=== PATIENT | male | born 1985 | race Caucasian/White ===

== ENCOUNTER 2017-04-29 17:19 | Emergency (ER) | payer MEDICAID ==
[2017-04-29] MEDS ORDERED: Sodium Chloride 0.9% 10 ML Syringe FLUSH PRN (17:22)
--- NOTE | 2017-04-29 17:22 | EDM.PDOC ---
ED HPI GENERAL MEDICAL PROBLEM - General Chief Complaint: Neurological Problem Stated Complaint: dizziness, lightheaded Time Seen by Provider: 04/29/17 17:20 Source of Information: Reports: Patient, EMS, Family (Mother), Old Records ([facility] EMR. No paper hospital chart available.). 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 He also complains of some photophobia and an 8/10 bilateral frontal headache with no previous history of migraine headaches, visual changes, seizure activity, change in mental status, or other neurological deficits. The polisher sand did start O2 at 2 L/m by nasal cannula with O2 sat of 96% on room air upon their initial evaluation. Patient has a known history of recurrent nonspecific near syncopal episodes, including emergency room evaluations in this facility on 07/17/16, 08/30/16, and 11/07/16. The patient's mother did bring him to [facility] on 11/07/16 with apparent negative cardiac evaluation in that facility, although specific testing unknown. The patient did have a suboptimal Cardiolite stress test on 07/19/16 secondary to artifacts with 5 episodes of near syncope shortly after that procedure. The patient denies any chest pain/pressure, heart flutter, orthopnea, diaphoresis, recent decreased exercise tolerance, or any other anginal-type symptoms. No recent history of abdominal pain, heartburn, nausea, diarrhea, melena, gross hematochezia, or any food intolerance, including fatty foods, etc.. The patient also denies any recent fever, cough, wheezing, dyspnea, etc.. The patient admits to continued marijuana use with marijuana use yesterday evening from a new supplier. He denies any other illicit drug use Onset: Today, Sudden, Gradual Onset Date: 04/29/17 Onset Time: 16:45 Duration: Constant Location: Reports: Head. Denies: Face, Neck, Chest, Abdomen, Back, Upper Extremity, Left, Upper Extremity, Right, Radiates to Quality: Reports: Same as Previous Episode Severity: Moderate Improves with: Reports: None Worsens with: Reports: None Context: Reports: Other (As above) Associated Symptoms: Reports: Headaches, Syncope (Near syncope). 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 Denies: Aspirin, IV/IO Bilateral Frontal Headache Pain Score (Numeric/FACES): 8 - Related Data Allergies Allergy/AdvReac Type Severity Reaction Status Date / Time No Known Allergies Allergy Verified 04/29/17 17:22 Home Meds: Home Meds Levothyroxine 125 mcg PO ACBREAKFAST 11/07/16 [History] Past Medical History HEENT History: Reports: Other (See Below). Denies: Allergic Rhinitis, Glaucoma , Hard of Hearing, Impaired Vision, Macular Degeneration Other HEENT History: Right-sided strabismus convergence Cardiovascular History: Reports: Arrhythmia, High Cholesterol, Syncope, Other ( See Below). Denies: Afib, Aneurysm, Blood Clots/VTE/DVT, CAD, Heart Failure, Heart Murmur, Hypertension, UT Other Cardiovascular History: Syncopal episode initially on 07/12/15 with recurrent episodes since that time, hyperlipidemia and triglyceridemia, right bundle branch block Respiratory History: Reports: COPD, Intubation, Previous, Other (See Below). Denies: Asthma, Bronchitis, Recurrent, Intubation, Difficult, PE, Pneumothorax, Sleep Apnea Other Respiratory History: Patient with history of premature delivery at 32 weeks gestation with and NICU care and intubation, COPD by chest x-ray with history of tobacco and marijuana use Gastrointestinal History: Reports: Chronic Constipation, GERD, Hemorrhoids, Jaundice, Other (See Below). Denies: Bowel Obstruction, Celiac Disease, Cholelithiasis, Chronic Diarrhea, Gastritis, GI Bleed, Hepatitis, Hiatal Hernia , Inflammatory Bowel Disease, Irritable Bowel Syndrome, Pancreatitis, PUD Other Gastrointestinal History: jaundice secondary to prematurity Genitourinary History: Reports: None, Other (See Below). Denies: Acute Renal Failure, BPH, Chronic Renal Insuffiency, Renal Calculus, STD, Urinary Incontinence, UTI, Recurrent Other Genitourinary History: Although nonspecific history of previous episode of mild renal insufficiency by medical records Musculoskeletal History: Reports: Arthritis, Back Pain, Chronic, Fracture, Osteoarthritis, Other (See Below). Denies: Amputation, Gout, Neck Pain, Chronic , RA, SLE Other Musculoskeletal History: Boxer's fracture of the fifth metacarpal of the left hand initially at age 15 and then at age 17 Neurological History: Reports: Concussion, Head Trauma, Other (See Below). Denies: Brain Injury, Cerebral Aneurysms, CVA, Headaches, Chronic, Migraines, Seizure, TIA Other Neuro History: Head concussion at about age 12 Psychiatric History: Reports: Addiction, Anxiety, Depression, Suicidal Ideation , Other (See Below). Denies: Abuse, Victim of, ADD, ADHD, Psych Hospitalization (s), PTSD, Suicide Attempt Other Psychiatric History: Anxiety and depression with suicidal ideation without attempt at about age 13, chronic illicit drug and tobacco use Endocrine/Metabolic History: Reports: Hypothyroidism, Other (See Below). Denies : Diabetes, Type I, Diabetes, Type II, IDDM Other Endocrine/Metabolic History: Hypothyroidism since with history of previous medication noncompliance, thymus hyperplasia of unknown etiology Hematologic History: Reports: None. Denies: Anemia, Blood Transfusion(s) Immunologic History: Reports: None. Denies: AIDS, HIV, SLE Oncologic (Cancer) History: Reports: None. Denies: Basal Cell Carcinoma, Hodgkin's Lymphoma, Leukemia, Lymphoma, Malignant Melanoma, Non-Hodgkin's Lymphoma, Squamous Cell Carcinoma Dermatologic History: Reports: Eczema, Other (See Below). Denies: Psoriasis Other Dermatologic History: Eczema on the hands with no current therapy - Infectious Disease History Infectious Disease History: Reports: Chicken Pox, Measles. Denies: C-Difficile , Meningitis, Mononucleosis, MRSA, Mumps, Rubella, Scarlet Fever, Shingles, TB, VRE - Past Surgical History Head Surgeries/Procedures: Reports: None HEENT Surgical History: Reports: None. Denies: Adenoidectomy, Eye Surgery, Myringotomy w Tube(s), Naso-Sinus Surgery, Oral Surgery, Tonsillectomy Cardiovascular Surgical History: Reports: None. Denies: Varicose, Vascular Surgery Respiratory Surgical History: Reports: None GI Surgical History: Reports: None. Denies: Appendectomy, Cholecystectomy, Colonoscopy, EGD, Hernia, Abdominal, Hernia, Inguinal, Hernia Repair/Other Male Surgical History: Reports: Circumcision, Other (See Below) Other Male Surgeries/Procedures: Circumcision as an infant Endocrine Surgical History: Reports: None. Denies: Thyroid Biopsy Neurological Surgical History: Reports: None. Denies: C-Spine, Discectomy, Laminectomy, Lumbar Spine, Spinal Fusion, Vertebroplasty Musculoskeletal Surgical History: Reports: None. Denies: Arthroscopic Knee, Arthroscopic Procedure, Carpal Tunnel, Ganglion Cyst, Joint Replacement, ORIF, Shoulder Surgery Oncologic Surgical History: Reports: None Dermatological Surgical History: Reports: Other (See Below) Other Dermatological Surgeries/Procedures: Skin excision 2 sebaceous cysts from the left buttocks in January 2016 - Past Imaging History Past Imaging History: Reports: CAT Scan (CT of the chest, abdomen, and pelvis all with IV contrast on 11/07/16, CT of the head at age 12 at time of head concussion), MRI (Apparent MRI of the chest in October 2016 in [facility]), Stress Testing (Inconclusive Cardiolite stress test on 07/19/16 secondary to artifacts in the Cardiolite scan) Social & Family History - Family History HEENT: Reports: None. Denies: Allergic Rhinitis, Glaucoma, Macular Degeneration , Retinal Detachment Cardiac: Reports: CAD, Heart Failure, High Cholesterol, UT, Stent, Other (See Below). Denies: Afib, Aneurysm, Arrhythmia, Blood Clots/VTE/DVT, Bypass, Heart Murmur, Hypertension, Pacemaker, PVD/COD, Syncope Other Cardiac Family History: Maternal uncle with fatal UT at age 54, father with UT at age 46, maternal aunt with UT in PTCA/stent times 2 at age 54, mother with UT at age 54, mother with hyperlipidemia Respiratory: Reports: None. Denies: Asthma, COPD, PE, Pneumothorax, Sleep Apnea GI: Reports: Cholelithiasis, Other (See Below). Denies: Celiac Disease, Colon Polyps, GERD, GI bleed, Hepatitis, Inflammatory Bowel Disease, Irritable Bowel Syndrome, Pancreatitis, PUD Other GI Family History: Brother with appendectomy at age 31, sister with cholecystectomy at age 18 : Reports: None. Denies: Renal Calculus, Renal Disease/Insufficiency OBGYN: Reports: None. Denies: Endometriosis, Recurrent Spontaneous Musculoskeletal: Reports: Arthritis, Osteoarthritis, RA, Other (See Below). Denies: Gout, SLE Other Musculoskeletal Family History: Maternal grandmother with rheumatoid arthritis Neurological: Reports: CVA, Other (See Below). Denies: Alzheimers Disease, Cerebral Aneurysms, Dementia, Migraines, MS, Parkinson's, Seizure, TIA Other Neurological Family History: Brother with history of CVA x2 in his early 30s, mother with CVA at age 55 Psychiatric: Reports: Anxiety, Depression, Suicide Attempt, Other (See Below). Denies: Abuse, Victim of, ADD, ADHD, PTSD Other Psychiatric Family History: Father with anxiety depression disorder secondary to marital problems with successful suicide at age 46 Endocrine/Metabolic: Reports: None. Denies: Diabetes, Type I, Diabetes, type II , Hypothyroidism, IDDM Hematologic: Reports: None. Denies: Anemia, B12 Deficiency, SLE, Transfusion Reaction Immunologic: Reports: None. Denies: AIDS, HIV, SLE Dermatologic: Reports: None. Denies: Eczema, Psoriasis Oncologic: Reports: Other (See Below). Denies: Colon, Hodgkin's Lymphoma, Leukemia, Lymphoma, Prostate, Skin Other Oncologic Family History: Mother with breast cancer in her 50s - Tobacco Use Smoking Status *Q: Current Some Day Smoker Tobacco Use Within Last Twelve Months: Cigarettes Years of Tobacco use: 15 Packs/Tins Daily: 0.2 Used Tobacco, but Quit: No Month Tobacco Last Used: Patient smokes about one pack every 2 weeks currently and is trying to quit Smoking Cessation Information Provided To Patient: Yes Second Hand Smoke Exposure: Yes Source of Second Hand Smoke Exposure: Mother smokes Second Hand Smoke Education Provided: Yes - Caffeine Use Caffeine Use: Reports: Coffee (Occasional). Denies: Energy Drinks, Soda, Tea Caffeine Use Comment: 2 cups of coffee per year - Alcohol Use Alcohol Use History: Yes Days Per Week of Alcohol Use: 1 (No previous DWIs, problems with alcohol abuse, etc.) Number of Drinks Per Day: 2 (Usually beer) Total Drinks Per Week: 2 Alcohol Use in Last Twelve Months: Yes Alcohol Use Frequency: Socially - Recreational Drug Use Recreational Drug Use: Yes Drug Use in Last 12 Months: Yes Recreational Drug Type: Reports: Marijuana/Hashish. 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 ED EXAM, GENERAL - Physical Exam Exam: See Below Exam Limited By: No Limitations General Appearance: Alert, WD/WN, No Apparent Distress, Anxious (Mild to moderate) Eye Exam: Bilateral Eye: EOMI, Normal Fundi, Normal Inspection (No nystagmus), PERRL Ears: Normal External Exam, Normal Canal, Hearing Grossly Normal, Normal TMs Nose: Normal Inspection, Normal Mucosa, No Blood Throat/Mouth: Normal Inspection, Normal Lips, Normal Teeth, Normal Gums, Normal Oropharynx, Normal Voice, No Airway Compromise. No: Dysphagia, Perioral Cyanosis Head: Atraumatic, Normocephalic. No: Facial Swelling, Facial Tenderness, Sinus Tenderness Neck: Normal Inspection, Supple, Non-Tender, Full Range of Motion. No: Carotid Bruit, Lymphadenopathy (L), Lymphadenopathy (R), Thyromegaly Respiratory/Chest: No Respiratory Distress, Lungs Clear, Normal Breath Sounds, No Accessory Muscle Use, Chest Non-Tender. No: Pleural Rub, Retractions Cardiovascular: Normal Peripheral Pulses, Regular Rate, Rhythm, No Edema, No Gallop, No JVD, No Murmur, No Rub. No: Gallop/S3, Gallop/S4, Friction Rub Peripheral Pulses: 4+: Radial (L), Radial (R), Dorsalis Pedis (L), Dorsalis Pedis (R) GI/Abdominal: Normal Bowel Sounds, Soft, Non-Tender, No Organomegaly, No Distention, No Abnormal Bruit, No Mass. No: Guarding (Male) Exam: Deferred Rectal (Males) Exam: Deferred Back Exam: Normal Inspection, Full Range of Motion. No: CVA Tenderness (L), CVA Tenderness (R), Muscle Spasm Extremities: Normal Inspection, Normal Range of Motion, Non-Tender, Normal Capillary Refill, No Pedal Edema Neurological: Alert, Oriented, CN II-XII Intact, Normal Cognition, Normal Gait, Normal Reflexes (Negative Babinski's, finger to nose, and pronator rotation tests. No evidence of facial paresis, tongue deviation, orthostasis, etc.. Excellent reverse thought processes.), No Motor/Sensory Deficits Psychiatric: Anxious (Mild to moderate), Depressed Mood (Adequate eye contact), Flat Affect Skin Exam: Warm, Dry, Intact, Normal Color, No Rash. No: Diaphoretic, Ecchymosis, Jaundice, Wound/Incision Lymphatic: No Adenopathy EKG INTERPRETATION EKG Date: 04/29/17 Time: 17:35 Rhythm: Other (Mild sinus bradycardia) Rate (Beats/Min): 57 Floyd: Normal (Neutral cardiac axis) P-Wave: Present (Diffuse biphasic P waves with poor R-wave progression in the anterior leads and possible left ventricular hypertrophy by voltage) QRS: RBBB (QRS interval of 0.10 seconds representing an incomplete right bundle branch block with T-wave inversion in lead V1) ST-T: Normal QT: Normal TX/PQ Interval: 0.14 seconds with no delta waves noted Comparison: Change From Previous EKG (Right Bundle branch block versus lead placement and T-wave inversion in lead V1 with resolution of previous T-wave inversion in lead 3 and pulmonary hypertension by EKG on 11/07/16) EKG Interpretation Comments: 1. Sinus bradycardia 2. Incomplete right bundle branch block 3. No acute ischemic changes Course - Vital Signs Last Recorded V/S: Last Vital Signs Temp 36.8 C 04/29/17 17:23 Pulse 56 L 04/29/17 19:20 Resp 18 04/29/17 19:20 BP 104/72 04/29/17 19:20 Pulse Ox 98 04/29/17 19:20 Vital Signs - 24 hr 04/29/17 04/29/17 04/29/17 17:23 17:24 17:41 Temperature [ 36.8 C Temporal] Pulse, 62 57 L Peripheral [ Right Pulse Oximetry] Respiratory 14 17 Rate Blood Pressure 137/89 115/70 [Left Upper Arm ] O2 Sat by Pulse 100 100 Oximetry O2 Sat by Pulse 100 Oximetry [ Nasal Cannula] 04/29/17 04/29/17 04/29/17 18:03 18:17 18:32 Temperature [ Temporal] Pulse, 58 L 57 L 56 L Peripheral [ Right Pulse Oximetry] Respiratory 17 17 Rate Blood Pressure 111/78 105/71 104/68 [Left Upper Arm ] O2 Sat by Pulse 100 100 Oximetry O2 Sat by Pulse Oximetry [ Nasal Cannula] 04/29/17 04/29/17 04/29/17 18:47 19:04 19:20 Temperature [ Temporal] Pulse, 57 L 59 L 56 L Peripheral [ Right Pulse Oximetry] Respiratory 18 15 18 Rate Blood Pressure 107/79 113/74 104/72 [Left Upper Arm ] O2 Sat by Pulse 100 100 98 Oximetry O2 Sat by Pulse Oximetry [ Nasal Cannula] - Orders/Labs/Meds Orders: Active Orders 24 hr Category Date Time Status Blood Glucose Check, Bedside [RC] STAT Care 04/29/17 17:20 Active Cardiac Monitoring [RC] . DIRECTED Care 04/29/17 17:23 Active EKG Documentation Completion [RC] ASDIRECTED Care 04/29/17 17:26 Active Oxygen Therapy, ED [RC] CONTINUOUS Care 04/29/17 17:24 Active Peripheral IV Care [RC] . DIRECTED Care 04/29/17 17:26 Active Pulse Oximetry [RC] CONTINUOUS Care 04/29/17 17:25 Active Up With Assistance [RC] PFP Care 04/29/17 17:25 Active Chest 1V Frontal [CR] Stat Exams 04/29/17 17:44 Taken Obtain Past Medical Record [OM.PC] Routine Oth 04/29/17 17:24 Active Peripheral IV Insertion Adult [OM.PC] Stat Oth 04/29/17 17:25 Ordered Resuscitation Status Routine Resus Stat 04/29/17 17:22 Ordered Labs: Laboratory Tests 04/29/17 04/29/17 04/29/17 Range/Units 17:38 17:38 17:38 WBC 8.8 (4.0-10.2) K/uL RBC 5.26 (4.33-5.41) M/uL Hgb 16.6 (13.1-16.8) g/dL Hct 48.1 (39.0-49.0) % MCV 91.4 (84.0-98.0) fL MCH 31.6 (28.2-33.3) pg MCHC 34.5 (31.7-36.0) g/dL RDW 13.2 (11.2-14.1) % Plt Count 249 (150-350) K/uL Neut % (Auto) 53.8 (45.0-80.0) % Lymph % (Auto) 34.0 (10.0-50.0) % Zapata % (Auto) 10.0 (2.0-14.0) % Eos % (Auto) 1.7 (0.0-5.0) % Baso % (Auto) 0.5 (0.0-2.0) % Neut # (Auto) 4.76 (1.40-7.00) K/uL Lymph # (Auto) 3.00 (0.50-3.50) K/uL Zapata # (Auto) 0.88 (0.00-1.00) K/uL Eos # (Auto) 0.15 (0.00-0.50) K/uL Baso # (Auto) 0.04 (0.00-0.20) K/uL PT (9.8-11.7) SEC INR APTT (23.5-30.0) SEC D-Dimer, Quantitative (0-400) ng/mL Sodium 140 (136-145) mmol/L Potassium 3.5 (3.5-5.1) mmol/L Chloride 106 (98-107) mmol/L Carbon Dioxide 20.6 L (21.0-32.0) mmol/L BUN 13 (7-18) mg/dL Creatinine 1.09 (0.51-1.17) mg/dL Est Cr Clr Drug Dosing 89.28 mL/min Estimated GFR (MDRD) > 60 mL/min Glucose 95 (74-106) mg/dL Hemoglobin A1c 5.6 (4.3-5.7) % Lactic Acid (0.4-2.0) mmol/L Uric Acid 5.5 (2.6-7.2) mg/dL Calcium 9.1 (8.5-10.1) mg/dL Magnesium 2.1 (1.8-2.4) mg/dL Total Bilirubin 1.7 H (0.2-1.0) mg/dL Direct Bilirubin (0.0-0.2) mg/dL Indirect Bilirubin mg/dL AST 19 (15-37) U/L ALT 28 (12-78) U/L Alkaline Phosphatase 108 (46-116) IU/L Creatine Kinase 110 (26-308) U/L Creatine Kinase Index 1.5 (0.0-2.5) % CK-MB (CK-2) 1.60 (0.00-3.60) ng/mL Troponin I 0.004 (0.000-0.056) ng/mL Joc-F-[id number] Pept 10 (0-125) pg/mL Total Protein 6.7 (6.4-8.2) g/dL Albumin 3.7 (3.4-5.0) g/dL Amylase 34 (25-115) U/L TSH, Ultra Sensitive 1.597 (0.358-3.740) mIU/mL 04/29/17 04/29/17 04/29/17 Range/Units 17:38 17:38 17:38 WBC (4.0-10.2) K/uL RBC (4.33-5.41) M/uL Hgb (13.1-16.8) g/dL Hct (39.0-49.0) % MCV (84.0-98.0) fL MCH (28.2-33.3) pg MCHC (31.7-36.0) g/dL RDW (11.2-14.1) % Plt Count (150-350) K/uL Neut % (Auto) (45.0-80.0) % Lymph % (Auto) (10.0-50.0) % Zapata % (Auto) (2.0-14.0) % Eos % (Auto) (0.0-5.0) % Baso % (Auto) (0.0-2.0) % Neut # (Auto) (1.40-7.00) K/uL Lymph # (Auto) (0.50-3.50) K/uL Zapata # (Auto) (0.00-1.00) K/uL Eos # (Auto) (0.00-0.50) K/uL Baso # (Auto) (0.00-0.20) K/uL PT 11.6 (9.8-11.7) SEC INR 1.1 APTT (23.5-30.0) SEC D-Dimer, Quantitative < 100 (0-400) ng/mL Sodium (136-145) mmol/L Potassium (3.5-5.1) mmol/L Chloride (98-107) mmol/L Carbon Dioxide (21.0-32.0) mmol/L BUN (7-18) mg/dL Creatinine (0.51-1.17) mg/dL Est Cr Clr Drug Dosing mL/min Estimated GFR (MDRD) mL/min Glucose (74-106) mg/dL Hemoglobin A1c (4.3-5.7) % Lactic Acid 1.1 (0.4-2.0) mmol/L Uric Acid (2.6-7.2) mg/dL Calcium (8.5-10.1) mg/dL Magnesium (1.8-2.4) mg/dL Total Bilirubin (0.2-1.0) mg/dL Direct Bilirubin (0.0-0.2) mg/dL Indirect Bilirubin mg/dL AST (15-37) U/L ALT (12-78) U/L Alkaline Phosphatase (46-116) IU/L Creatine Kinase (26-308) U/L Creatine Kinase Index (0.0-2.5) % CK-MB (CK-2) (0.00-3.60) ng/mL Troponin I (0.000-0.056) ng/mL Oef-P-Uvlzvrrpyzy Pept (0-125) pg/mL Total Protein (6.4-8.2) g/dL Albumin (3.4-5.0) g/dL Amylase (25-115) U/L TSH, Ultra Sensitive (0.358-3.740) mIU/mL 04/29/17 04/29/17 Range/Units 17:38 17:38 WBC (4.0-10.2) K/uL RBC (4.33-5.41) M/uL Hgb (13.1-16.8) g/dL Hct (39.0-49.0) % MCV (84.0-98.0) fL MCH (28.2-33.3) pg MCHC (31.7-36.0) g/dL RDW (11.2-14.1) % Plt Count (150-350) K/uL Neut % (Auto) (45.0-80.0) % Lymph % (Auto) (10.0-50.0) % Zapata % (Auto) (2.0-14.0) % Eos % (Auto) (0.0-5.0) % Baso % (Auto) (0.0-2.0) % Neut # (Auto) (1.40-7.00) K/uL Lymph # (Auto) (0.50-3.50) K/uL Zapata # (Auto) (0.00-1.00) K/uL Eos # (Auto) (0.00-0.50) K/uL Baso # (Auto) (0.00-0.20) K/uL PT (9.8-11.7) SEC INR APTT 27.3 (23.5-30.0) SEC D-Dimer, Quantitative (0-400) ng/mL Sodium (136-145) mmol/L Potassium (3.5-5.1) mmol/L Chloride (98-107) mmol/L Carbon Dioxide (21.0-32.0) mmol/L BUN (7-18) mg/dL Creatinine (0.51-1.17) mg/dL Est Cr Clr Drug Dosing mL/min Estimated GFR (MDRD) mL/min Glucose (74-106) mg/dL Hemoglobin A1c (4.3-5.7) % Lactic Acid (0.4-2.0) mmol/L Uric Acid (2.6-7.2) mg/dL Calcium (8.5-10.1) mg/dL Magnesium (1.8-2.4) mg/dL Total Bilirubin 1.7 H (0.2-1.0) mg/dL Direct Bilirubin 0.2 (0.0-0.2) mg/dL Indirect Bilirubin 1.5 mg/dL AST (15-37) U/L ALT (12-78) U/L Alkaline Phosphatase (46-116) IU/L Creatine Kinase (26-308) U/L Creatine Kinase Index (0.0-2.5) % CK-MB (CK-2) (0.00-3.60) ng/mL Troponin I (0.000-0.056) ng/mL Krb-M-Geryzadndjg Pept (0-125) pg/mL Total Protein (6.4-8.2) g/dL Albumin (3.4-5.0) g/dL Amylase (25-115) U/L TSH, Ultra Sensitive (0.358-3.740) mIU/mL Stat Accu-Chek of 84 mg percent on arrival Meds: Medications Discontinued Medications Generic Name Dose Route Start Last Admin Trade Name Estefany PRN Reason Stop Dose Admin Sodium Chloride 10 ml 04/29/17 17:22 Saline Flush FLUSH ASDIRECTED PRN Keep Vein Open - Radiology Interpretation Free Text/Narrative:: Heart monitor showed occasional sinus bradycardia with lowest heart rate of 49 with average heart rate in the mid 50s and occasionally in the low 60s with no ectopy or arrhythmia Chest x-ray, portable, shows possible pulmonary obstructive disease with no cardiomegaly, CHF, pulmonary infiltrates, pneumothorax, etc. Departure - Departure Time of Disposition: 19:40 Disposition: Home, Self-Care 01 Condition: Good Clinical Impression: Tobacco abuse counseling, Peptic reflux disease, Mixed anxiety depressive disorder, Thymus hyperplasia, Near syncope, Illicit drug use, continuous, Right bundle branch block, [place] syndrome, Bradycardia Hypothyroidism Qualifiers: Hypothyroidism type: acquired Qualified Code(s): E03.9 - Hypothyroidism, unspecified Hyperlipidemia Qualifiers: Hyperlipidemia type: mixed hyperlipidemia Qualified Code(s): E78.2 - Mixed hyperlipidemia - Discharge Information Instructions: Near-Syncope, [id number] Referrals: Nicol Vieyra PA-C [Primary Care Provider] - Forms: ED Department Discharge, ED Return to Work/School Form Additional Instructions: 1. Follow-up with your regular provider, Nicol Deng PA-C, at [facility] in [place], in 2 days as recommended for reevaluation and possible scheduling of an event monitor, tilt table testing, cardiology/ neurology consultation, etc. depending on her symptoms and clinical course. 2. Work excuse- See Form 3. Limited activity as discussed with strict no driving, fall/injury precautions, etc. until otherwise directed by your regular provider 4. Stop all tobacco and all illicit drug use SAHARA as directed/per provided information and consider contacting [employer]uit [facility], etc.. 5. Ice packs to head and neck, dark and quiet room, etc. as directed until headache resolves. 6. Tylenol 650 mg by mouth every 4 hours and/or OTC ibuprofen 2-3 tabs by mouth every 6 hours with food as directed./needed. 7. Facility will call you tomorrow morning for scheduling of recommended echocardiogram in this facility tomorrow. Do not leave this facility until you receive the preliminary verbal report from me 8. At the Follow up visit as above discuss possible repeat Cardiolite stress test as previously recommended depending upon the above test results 9. Close follow-up of your thymus gland enlargement with your regular provider as discussed with possibility of referral to endocrinology - Problem List & Annotations (1) Bradycardia SNOMED Code(s): 57038888 Code(s): R00.1 - BRADYCARDIA, UNSPECIFIED Status: Acute Priority: High Onset Date: 04/29/17 Annotation/Comment:: Nonspecific mild to moderate of unknown etiology today with no true chest pain or anginal type symptoms. Patient does have a history of recurrent near syncopal episodes of unknown etiology with previous negative cardiology workup as above. Close follow-up by his regular provider as per discharge instructions, including recommended possible event monitor, repeat Cardiolite stress test, cardiology/neurology referral, etc. (2) Near syncope SNOMED Code(s): 881451739 Code(s): R55 - SYNCOPE AND COLLAPSE Status: Acute Priority: High Onset Date: 07/12/16 Annotation/Comment:: Recurrent nonspecific syncope as above. Note bradycardia as above. No neurological deficits at this time. Possible psychogenic versus cardiac component. 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 Consider repeat lipid panel now that his TSH is normal. Significant hyperlipidemia in the past with initiation of statin therapy depending on his clinical course and test results Qualifiers: Hyperlipidemia type: mixed hyperlipidemia Qualified Code(s): E78.2 - Mixed hyperlipidemia (6) Hypothyroidism SNOMED Code(s): 34774015 Code(s): E03.9 - HYPOTHYROIDISM, UNSPECIFIED Status: Chronic Priority: High Onset Date: Unknown Annotation/Comment:: TSH normal at this time. Medication compliance encouraged. Hypothyroidism since possibly secondary to premature delivery. Patient has been noncompliant with medical therapy in the past. Qualifiers: Hypothyroidism type: acquired Qualified Code(s): E03.9 - Hypothyroidism, unspecified (7) Illicit drug use, continuous SNOMED Code(s): 564091641 Code(s): F19.90 - OTHER PSYCHOACTIVE SUBSTANCE USE, UNSPECIFIED, UNCOMPLICATED Status: Chronic Priority: High Annotation/Comment:: Discontinuation of illicit drug use once again strongly recommended secondary to borderline COPD changes as above, exacerbation of depression, etc. (8) Mixed anxiety depressive disorder SNOMED Code(s): 961454392 Code(s): F41.8 - OTHER SPECIFIED ANXIETY DISORDERS Status: Chronic Priority: Medium Annotation/Comment:: Observe closely for now. Discontinue marijuana as above. (9) Peptic reflux disease SNOMED Code(s): 47368226 Code(s): K21.9 - GASTRO-ESOPHAGEAL REFLUX DISEASE WITHOUT ESOPHAGITIS Status: Chronic Priority: Medium Onset Date: ~07/17/16 Annotation/Comment: : Stable by history (10) Right bundle branch block SNOMED Code(s): 76320921 Code(s): I45.10 - UNSPECIFIED RIGHT BUNDLE-BRANCH BLOCK Status: Chronic Priority: Medium Annotation/Comment:: No true chest pain or anginal type symptoms with negative cardiac enzymes, however inconclusive recent Cardiolite stress test as above (11) Tobacco abuse counseling SNOMED Code(s): 480233839, 540201062, 041578149 Code(s): Z71.6 - TOBACCO ABUSE COUNSELING Status: Chronic Priority: Medium Annotation/Comment:: Tobacco cessation strongly encouraged both for the patient and his mother with tobacco cessation information provided to the mother today - Problem List Review Problem List Initiated/Reviewed/Updated: Yes - My Orders Last 24 Hours: My Active Orders 04/29/17 17:20 Blood Glucose Check, Bedside [] STAT 04/29/17 17:22 Resuscitation Status Routine 04/29/17 17:23 Cardiac Monitoring [RC] . DIRECTED 04/29/17 17:24 Oxygen Therapy, ED [RC] CONTINUOUS Obtain Past Medical Record [OM.PC] Routine 04/29/17 17:25 Pulse Oximetry [RC] CONTINUOUS Up With Assistance [RC] PFP Peripheral IV Insertion Adult [OM.PC] Stat 04/29/17 17:26 EKG Documentation Completion [RC] ASDIRECTED Peripheral IV Care [RC] . DIRECTED 04/29/17 17:44 Chest 1V Frontal [CR] Stat - Assessment/Plan Last 24 Hours: My Active Orders 04/29/17 17:20 Blood Glucose Check, Bedside [RC] STAT 04/29/17 17:22 Resuscitation Status Routine 04/29/17 17:23 Cardiac Monitoring [RC] . DIRECTED 04/29/17 17:24 Oxygen Therapy, ED [RC] CONTINUOUS Obtain Past Medical Record [OM.PC] Routine 04/29/17 17:25 Pulse Oximetry [RC] CONTINUOUS Up With Assistance [RC] PFP Peripheral IV Insertion Adult [OM.PC] Stat 04/29/17 17:26 EKG Documentation Completion [RC] ASDIRECTED Peripheral IV Care [RC] . DIRECTED 04/29/17 17:44 Chest 1V Frontal [CR] Stat Assessment:: As above Plan: As above. Extensive precautions were given to the patient and his mother, who are in agreement with the treatment plan. See Patient Instructions for further treatment and plan.
[2017-04-29 18:41] LABS: CHLORIDE,CL 106 mmol/L (98-107); SODIUM,NA 140 mmol/L (136-145)
[2017-04-29 20:09] VITALS: BP 104/72
== END 2017-04-29 19:40 | disposition home or self-care (01) ==
LOC: LL.ED 17:19
DX: I45.10 Unspecified right bundle-branch block (principal); R00.1 Bradycardia, unspecified; E78.00 Pure hypercholesterolemia, unspecified; E78.2 Mixed hyperlipidemia; E80.4 Gilbert syndrome; E32.0 Persistent hyperplasia of thymus; F41.8 Other specified anxiety disorders; J44.9 Chronic obstructive pulmonary disease, unspecified; K21.9 Gastro-esophageal reflux disease without esophagitis; E03.9 Hypothyroidism, unspecified; F17.210 Nicotine dependence, cigarettes, uncomplicated; Z71.6 Tobacco abuse counseling
CPT/HCPCS: 36415; 71010; 80053; 82150; 82247; 82248; 82550; 82553; 83036; 83605; 83735; 83880; 84443; 84484; 84550; 85025; 85379; 85610; 85730; 93005; 99285

== ENCOUNTER 2017-10-29 21:22 | Emergency (ER) | payer MEDICAID ==
[2017-10-29 21:28] VITALS: BP 104/63
--- NOTE | 2017-10-29 22:00 | EDM.PDOC ---
ED HPI GENERAL MEDICAL PROBLEM - General Chief Complaint: General Stated Complaint: "I think I have the flu" Time Seen by Provider: 10/29/17 21:50 Source of Information: Reports: Patient History Limitations: Reports: No Limitations - History of Present Illness INITIAL COMMENTS - FREE TEXT/NARRATIVE: Patient's a 32-year-old who comes in stating that he has not been feeling well for the past 48 hours he states that he feels he has the flu cough fever generalized aches and pains Duration: Day(s): (2 days) Location: Reports: Generalized Quality: Reports: Ache Worsens with: Reports: None Context: Reports: Other (Illness) Chest Pain Score (Numeric/FACES): 6 - Related Data Allergies Allergy/AdvReac Type Severity Reaction Status Date / Time No Known Allergies Allergy Verified 10/29/17 21:23 Home Meds: Home Meds Levothyroxine 125 mcg PO ACBREAKFAST 11/07/16 [History] Past Medical History HEENT History: Reports: Other (See Below). Denies: Allergic Rhinitis, Glaucoma , Hard of Hearing, Impaired Vision, Macular Degeneration Other HEENT History: Right-sided strabismus convergence Cardiovascular History: Reports: Arrhythmia, High Cholesterol, Syncope, Other ( See Below). Denies: Afib, Aneurysm, Blood Clots/VTE/DVT, CAD, Heart Failure, Heart Murmur, Hypertension, IN Other Cardiovascular History: Syncopal episode initially on 07/12/15 with recurrent episodes since that time, hyperlipidemia and triglyceridemia, right bundle branch block Respiratory History: Reports: COPD, Intubation, Previous, Other (See Below). Denies: Asthma, Bronchitis, Recurrent, Intubation, Difficult, PE, Pneumothorax, Sleep Apnea Other Respiratory History: Patient with history of premature delivery at 32 weeks gestation with and NICU care and intubation, COPD by chest x-ray with history of tobacco and marijuana use Gastrointestinal History: Reports: Chronic Constipation, GERD, Hemorrhoids, Jaundice, Other (See Below). Denies: Bowel Obstruction, Celiac Disease, Cholelithiasis, Chronic Diarrhea, Gastritis, GI Bleed, Hepatitis, Hiatal Hernia , Inflammatory Bowel Disease, Irritable Bowel Syndrome, Pancreatitis, PUD Other Gastrointestinal History: jaundice secondary to prematurity Genitourinary History: Reports: None, Other (See Below). Denies: Acute Renal Failure, BPH, Chronic Renal Insuffiency, Renal Calculus, STD, Urinary Incontinence, UTI, Recurrent Other Genitourinary History: Although nonspecific history of previous episode of mild renal insufficiency by medical records Musculoskeletal History: Reports: Arthritis, Back Pain, Chronic, Fracture, Osteoarthritis, Other (See Below). Denies: Amputation, Gout, Neck Pain, Chronic , RA, SLE Other Musculoskeletal History: Boxer's fracture of the fifth metacarpal of the left hand initially at age 15 and then at age 17 Neurological History: Reports: Concussion, Head Trauma, Other (See Below). Denies: Brain Injury, Cerebral Aneurysms, CVA, Headaches, Chronic, Migraines, Seizure, TIA Other Neuro History: Head concussion at about age 12 Psychiatric History: Reports: Addiction, Anxiety, Depression, Suicidal Ideation , Other (See Below). Denies: Abuse, Victim of, ADD, ADHD, Psych Hospitalization (s), PTSD, Suicide Attempt Other Psychiatric History: Anxiety and depression with suicidal ideation without attempt at about age 13, chronic illicit drug and tobacco use Endocrine/Metabolic History: Reports: Hypothyroidism, Other (See Below). Denies : Diabetes, Type I, Diabetes, Type II, IDDM Other Endocrine/Metabolic History: Hypothyroidism since with history of previous medication noncompliance, thymus hyperplasia of unknown etiology Hematologic History: Reports: None. Denies: Anemia, Blood Transfusion(s) Immunologic History: Reports: None. Denies: AIDS, HIV, SLE Oncologic (Cancer) History: Reports: None. Denies: Basal Cell Carcinoma, Hodgkin's Lymphoma, Leukemia, Lymphoma, Malignant Melanoma, Non-Hodgkin's Lymphoma, Squamous Cell Carcinoma Dermatologic History: Reports: Eczema, Other (See Below). Denies: Psoriasis Other Dermatologic History: Eczema on the hands with no current therapy - Infectious Disease History Infectious Disease History: Reports: Chicken Pox, Measles. Denies: C-Difficile , Meningitis, Mononucleosis, MRSA, Mumps, Rubella, Scarlet Fever, Shingles, TB, VRE - Past Surgical History Head Surgeries/Procedures: Reports: None HEENT Surgical History: Reports: None. Denies: Adenoidectomy, Eye Surgery, Myringotomy w Tube(s), Naso-Sinus Surgery, Oral Surgery, Tonsillectomy Cardiovascular Surgical History: Reports: None. Denies: Varicose, Vascular Surgery Respiratory Surgical History: Reports: None GI Surgical History: Reports: None. Denies: Appendectomy, Cholecystectomy, Colonoscopy, EGD, Hernia, Abdominal, Hernia, Inguinal, Hernia Repair/Other Male Surgical History: Reports: Circumcision, Other (See Below) Other Male Surgeries/Procedures: Circumcision as an Endocrine Surgical History: Reports: None. Denies: Thyroid Biopsy Neurological Surgical History: Reports: None. Denies: C-Spine, Discectomy, Laminectomy, Lumbar Spine, Spinal Fusion, Vertebroplasty Musculoskeletal Surgical History: Reports: None. Denies: Arthroscopic Knee, Arthroscopic Procedure, Carpal Tunnel, Ganglion Cyst, Joint Replacement, ORIF, Shoulder Surgery Oncologic Surgical History: Reports: None Dermatological Surgical History: Reports: Other (See Below) Other Dermatological Surgeries/Procedures: Skin excision 2 sebaceous cysts from the left buttocks in January 2016 - Past Imaging History Past Imaging History: Reports: CAT Scan (CT of the chest, abdomen, and pelvis all with IV contrast on 11/07/16, CT of the head at age 12 at time of head concussion), MRI (Apparent MRI of the chest in October 2016 in [place]), Stress Testing (Inconclusive Cardiolite stress test on 07/19/16 secondary to artifacts in the Cardiolite scan) Social & Family History - Family History HEENT: Reports: None. Denies: Allergic Rhinitis, Glaucoma, Macular Degeneration , Retinal Detachment Cardiac: Reports: CAD, Heart Failure, High Cholesterol, IN, Stent, Other (See Below). Denies: Afib, Aneurysm, Arrhythmia, Blood Clots/VTE/DVT, Bypass, Heart Murmur, Hypertension, Pacemaker, PVD/COD, Syncope Other Cardiac Family History: Maternal uncle with fatal IN at age 54, father with IN at age 46, maternal aunt with IN in PTCA/stent times 2 at age 54, mother with IN at age 54, mother with hyperlipidemia Respiratory: Reports: None. Denies: Asthma, COPD, PE, Pneumothorax, Sleep Apnea GI: Reports: Cholelithiasis, Other (See Below). Denies: Celiac Disease, Colon Polyps, GERD, GI bleed, Hepatitis, Inflammatory Bowel Disease, Irritable Bowel Syndrome, Pancreatitis, PUD Other GI Family History: Brother with appendectomy at age 31, sister with cholecystectomy at age 18 : Reports: None. Denies: Renal Calculus, Renal Disease/Insufficiency OBGYN: Reports: None. Denies: Endometriosis, Recurrent Spontaneous Musculoskeletal: Reports: Arthritis, Osteoarthritis, RA, Other (See Below). Denies: Gout, SLE Other Musculoskeletal Family History: Maternal grandmother with rheumatoid arthritis Neurological: Reports: CVA, Other (See Below). Denies: Alzheimers Disease, Cerebral Aneurysms, Dementia, Migraines, MS, Parkinson's, Seizure, TIA Other Neurological Family History: Brother with history of CVA x2 in his early 30s, mother with CVA at age 55 Psychiatric: Reports: Anxiety, Depression, Suicide Attempt, Other (See Below). Denies: Abuse, Victim of, ADD, ADHD, PTSD Other Psychiatric Family History: Father with anxiety depression disorder secondary to marital problems with successful suicide at age 46 Endocrine/Metabolic: Reports: None. Denies: Diabetes, Type I, Diabetes, type II , Hypothyroidism, IDDM Hematologic: Reports: None. Denies: Anemia, B12 Deficiency, SLE, Transfusion Reaction Immunologic: Reports: None. Denies: AIDS, HIV, SLE Dermatologic: Reports: None. Denies: Eczema, Psoriasis Oncologic: Reports: Other (See Below). Denies: Colon, Hodgkin's Lymphoma, Leukemia, Lymphoma, Prostate, Skin Other Oncologic Family History: Mother with breast cancer in her 50s - Tobacco Use Smoking Status *Q: Current Some Day Smoker Years of Tobacco use: 15 Packs/Tins Daily: 0.2 Used Tobacco, but Quit: No Month Tobacco Last Used: Patient smokes about one pack every 2 weeks currently and is trying to quit Second Hand Smoke Exposure: Yes - Caffeine Use Caffeine Use: Reports: Coffee (Occasional). Denies: Energy Drinks, Soda, Tea Caffeine Use Comment: 2 cups of coffee per year - Alcohol Use Days Per Week of Alcohol Use: 1 (No previous DWIs, problems with alcohol abuse, etc.) Number of Drinks Per Day: 2 (Usually beer) Total Drinks Per Week: 2 - Recreational Drug Use Recreational Drug Use: Yes Drug Use in Last 12 Months: Yes Recreational Drug Type: Reports: Marijuana/Hashish. 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) ED ROS GENERAL - Review of Systems Review Of Systems: See Below Constitutional: Reports: Fever, Chills, Malaise HEENT: Reports: No Symptoms, Rhinitis Respiratory: Reports: No Symptoms, Shortness of Breath, Cough Cardiovascular: Reports: No Symptoms Endocrine: Reports: No Symptoms GI/Abdominal: Reports: No Symptoms : Reports: No Symptoms Musculoskeletal: Reports: Muscle Stiffness Skin: Reports: No Symptoms Neurological: Reports: No Symptoms Psychiatric: Reports: No Symptoms Hematologic/Lymphatic: Reports: No Symptoms Immunologic: Reports: No Symptoms ED EXAM, GENERAL - Physical Exam Exam: See Below Exam Limited By: No Limitations General Appearance: Alert, WD/WN Ears: Normal External Exam, Normal Canal, Hearing Grossly Normal, Normal TMs Nose: Normal Inspection, Normal Mucosa, No Blood Throat/Mouth: Normal Inspection, Normal Lips, Normal Teeth, Normal Gums, Normal Oropharynx, Normal Voice, No Airway Compromise Head: Atraumatic, Normocephalic Neck: Normal Inspection, Supple, Non-Tender, Full Range of Motion Respiratory/Chest: No Respiratory Distress, Lungs Clear, Normal Breath Sounds, No Accessory Muscle Use, Chest Non-Tender Cardiovascular: Normal Peripheral Pulses, Regular Rate, Rhythm, No Edema, No Gallop, No JVD, No Murmur, No Rub GI/Abdominal: Normal Bowel Sounds, Soft, Non-Tender, No Organomegaly, No Distention, No Abnormal Bruit, No Mass (Male) Exam: Deferred Rectal (Males) Exam: Deferred Back Exam: Normal Inspection, Full Range of Motion, NT Extremities: Normal Inspection, Normal Range of Motion, Non-Tender, Normal Capillary Refill, No Pedal Edema Neurological: Alert, Oriented, CN II-XII Intact, Normal Cognition, Normal Gait, Normal Reflexes, No Motor/Sensory Deficits Psychiatric: Normal Affect, Normal Mood Skin Exam: Warm, Dry, Intact, Normal Color, No Rash Course - Vital Signs Last Recorded V/S: Last Vital Signs Temp 100.0 F 10/29/17 21:24 Pulse 89 10/29/17 21:24 Resp 16 02/13/18 21:24 BP 104/63 10/29/17 21:24 Pulse Ox 95 10/29/17 21:24 - Orders/Labs/Meds Orders: Active Orders 24 hr Category Date Time Status CXR [Chest 2V] [CR] Stat Exams 10/29/17 21:35 Taken Labs: Laboratory Tests 10/29/17 10/29/17 Range/Units 21:40 21:40 WBC 4.4 (4.0-10.2) K/uL RBC 5.05 (4.33-5.41) M/uL Hgb 15.9 (13.1-16.8) g/dL Hct 46.8 (39.0-49.0) % MCV 92.7 (84.0-98.0) fL MCH 31.5 (28.2-33.3) pg MCHC 34.0 (31.7-36.0) g/dL RDW 13.0 (11.2-14.1) % Plt Count 144 L D (150-350) K/uL Neut % (Auto) 39.3 L (45.0-80.0) % Lymph % (Auto) 44.6 (10.0-50.0) % [place] % (Auto) 15.4 H (2.0-14.0) % Eos % (Auto) 0.2 (0.0-5.0) % Baso % (Auto) 0.5 (0.0-2.0) % Neut # (Auto) 1.74 (1.40-7.00) K/uL Lymph # (Auto) 1.97 (0.50-3.50) K/uL [place] # (Auto) 0.68 (0.00-1.00) K/uL Eos # (Auto) 0.01 (0.00-0.50) K/uL Baso # (Auto) 0.02 (0.00-0.20) K/uL Sodium 138 (136-145) mmol/L Potassium 4.0 (3.5-5.1) mmol/L Chloride 103 (98-107) mmol/L Carbon Dioxide 27.7 (21.0-32.0) mmol/L BUN 14 (7-18) mg/dL Creatinine 1.15 (0.51-1.17) mg/dL Est Cr Clr Drug Dosing 81.68 mL/min Estimated GFR (MDRD) > 60 mL/min Glucose 106 (74-106) mg/dL Calcium 8.3 L (8.5-10.1) mg/dL Departure - Departure Time of Disposition: 22:08 Disposition: Home, Self-Care 01 Condition: Fair Clinical Impression: Influenza B - Discharge Information Instructions: Oseltamivir capsules, Viral Illness, Adult Referrals: Nicol Vieyra PA-C [Primary Care Provider] - Forms: ED Department Discharge Additional Instructions: Tamiflu 75 mg capsule twice a day for 5 days. Medication given. Encourage fluids and rest. Tylenol and/or ibuprofen every 6 hours as needed for discomfort. Heating pad/Steamer as needed. Return to ER or regular provider if symptoms worsen - increased fever, shortness of breathe, increased cough. Work Release. Care Plan Goals: Patient chest x-ray clear influenza positive for influenza B white count 4.4+ to send him home on Tamiflu 75 mg 1 tablet twice a day for 5 days follow-up with primary if not better or worse - My Orders Last 24 Hours: My Active Orders 10/29/17 21:35 CXR [Chest 2V] [CR] Stat - Assessment/Plan Last 24 Hours: My Active Orders 10/29/17 21:35 CXR [Chest 2V] [CR] Stat
[2017-10-29 22:01] LABS: CHLORIDE,CL 103 mmol/L (98-107); SODIUM,NA 138 mmol/L (136-145)
== END 2017-10-29 22:30 | disposition home or self-care (01) ==
LOC: LL.ED 21:22
DX: J10.1 Influenza due to other identified influenza virus with other respiratory manifestations (principal); E78.00 Pure hypercholesterolemia, unspecified; E03.9 Hypothyroidism, unspecified; F17.210 Nicotine dependence, cigarettes, uncomplicated
CPT/HCPCS: 36415; 71046; 80048; 85025; 87804; 99284

== ENCOUNTER 2018-09-22 19:39 | Emergency (ER) | payer OTHER ==
[2018-09-22 19:45] VITALS: BP 124/82
[2018-09-22] MEDS ORDERED: Sodium Chloride 0.9% 10 ML Syringe FLUSH PRN (19:59)
--- NOTE | 2018-09-22 20:10 | EDM.PDOC ---
ED HPI GENERAL MEDICAL PROBLEM - General Chief Complaint: General Stated Complaint: overdose of pills Time Seen by Provider: 09/22/18 19:59 Source of Information: Reports: Patient, Other (friend) - History of Present Illness INITIAL COMMENTS - FREE TEXT/NARRATIVE: Patient brought to ER by friend who was concerned that patient had said that he took a bunch of random pills early after lunch. Patient cannot name most of what he took, nor overall quantity. Possible meds include Tramadol and Thyroid , Flexeril, statin, and "whatever else was laying around the house". Patient had flat affect but made good eye contact. No obvious acute distress. Ambulated well. Nurse called poison control who stated that if patient took more than 30-40 thyroid pills that there could be significant issues in 2-3 days due to delayed effect. Initial labs requested as well as IV/Fluids during initial interview process. When lab came into the room to draw patient's labs, patient suddenly stated that he wanted to go home and go to sleep. He pulled off BP cuff. He was asked at this point multiple times if he was suicidal and he said no. When asked what had changed since he took the pills earlier today, he said that he felt better and just wanted to go home and go to sleep. He was informed as to Poison Control's concern as to delayed effects of thyroid medication and that it would be best to have him medically observed, patient did not care and continued to head towards hospital exit. He denies being homicidal. He was asked if he could have someone stay with him tonight and he said that he could call a friend. It was stressed to him that he should not be alone. Friend accompanying patient felt that patient was not suicidal, but instead was feeling really low. Friend said that he would be willing to stay with patient for awhile after discharge while it was arranged to have someone else come and assist. Patient left AMA After they left, it was felt appropriate to contact the local police as it was felt by staff that patient still needed to be evaluated and was making unsafe decisions and was at risk for harming himself. Local officer made welfare check at our request after having to verify patient's real address with patient' s mother as he did not give us the real address of his apartment (he instead gave us his mother's address). Shortly thereafter EMS was paged out to patient' s address at request of the chief marketing officer. - Related Data Allergies Allergy/AdvReac Type Severity Reaction Status Date / Time No Known Allergies Allergy Verified 09/22/18 22:05 Home Meds: Home Meds Levothyroxine 150 mcg PO ACBREAKFAST 11/07/16 [History] atorvaSTATin [Lipitor] 40 mg PO DAILY 09/22/18 [History] Past Medical History HEENT History: Reports: Other (See Below) Other HEENT History: Right-sided strabismus convergence Cardiovascular History: Reports: Arrhythmia, High Cholesterol, Syncope, Other ( See Below) Other Cardiovascular History: Syncopal episode initially on 07/12/15 with recurrent episodes since that time, hyperlipidemia and triglyceridemia, right bundle branch block Respiratory History: Reports: COPD, Intubation, Previous, Other (See Below) Other Respiratory History: Patient with history of premature delivery at 32 weeks gestation with and NICU care and intubation, COPD by chest x-ray with history of tobacco and marijuana use Gastrointestinal History: Reports: Chronic Constipation, GERD, Hemorrhoids, Jaundice, Other (See Below) Other Gastrointestinal History: jaundice secondary to prematurity Genitourinary History: Reports: None, Other (See Below) Other Genitourinary History: Although nonspecific history of previous episode of mild renal insufficiency by medical records Musculoskeletal History: Reports: Arthritis, Back Pain, Chronic, Fracture, Osteoarthritis, Other (See Below) Other Musculoskeletal History: Boxer's fracture of the fifth metacarpal of the left hand initially at age 15 and then at age 17 Neurological History: Reports: Concussion, Head Trauma, Other (See Below) Other Neuro History: Head concussion at about age 12 Psychiatric History: Reports: Addiction, Anxiety, Depression, Suicidal Ideation , Other (See Below) Other Psychiatric History: Anxiety and depression with suicidal ideation without attempt at about age 13, chronic illicit drug and tobacco use Endocrine/Metabolic History: Reports: Hypothyroidism, Other (See Below) Other Endocrine/Metabolic History: Hypothyroidism since with history of previous medication noncompliance, thymus hyperplasia of unknown etiology Hematologic History: Reports: None Immunologic History: Reports: None Oncologic (Cancer) History: Reports: None Dermatologic History: Reports: Eczema, Other (See Below) Other Dermatologic History: Eczema on the hands with no current therapy - Infectious Disease History Infectious Disease History: Reports: Chicken Pox, Measles - Past Surgical History Head Surgeries/Procedures: Reports: None HEENT Surgical History: Reports: None Cardiovascular Surgical History: Reports: None Respiratory Surgical History: Reports: None GI Surgical History: Reports: None Male Surgical History: Reports: Circumcision, Other (See Below) Other Male Surgeries/Procedures: Circumcision as an Endocrine Surgical History: Reports: None Neurological Surgical History: Reports: None Musculoskeletal Surgical History: Reports: None Oncologic Surgical History: Reports: None Dermatological Surgical History: Reports: Other (See Below) - Past Imaging History Past Imaging History: Reports: CAT Scan (CT of the chest, abdomen, and pelvis all with IV contrast on 11/07/16, CT of the head at age 12 at time of head concussion), MRI (Apparent MRI of the chest in October 2016 in [place]), Stress Testing (Inconclusive Cardiolite stress test on 07/19/16 secondary to artifacts in the Cardiolite scan) Social & Family History - Family History HEENT: Reports: None Cardiac: Reports: CAD, Heart Failure, High Cholesterol, IN, Stent, Other (See Below) Other Cardiac Family History: Maternal uncle with fatal IN at age 54, father with IN at age 46, maternal aunt with IN in PTCA/stent times 2 at age 54, mother with IN at age 54, mother with hyperlipidemia Respiratory: Reports: None GI: Reports: Cholelithiasis, Other (See Below) Other GI Family History: Brother with appendectomy at age 31, sister with cholecystectomy at age 18 : Reports: None OBGYN: Reports: None Musculoskeletal: Reports: Arthritis, Osteoarthritis, RA, Other (See Below) Other Musculoskeletal Family History: Maternal grandmother with rheumatoid arthritis Neurological: Reports: CVA, Other (See Below) Other Neurological Family History: Brother with history of CVA x2 in his early 30s, mother with CVA at age 55 Psychiatric: Reports: Anxiety, Depression, Suicide Attempt, Other (See Below) Other Psychiatric Family History: Father with anxiety depression disorder secondary to marital problems with successful suicide at age 46 Endocrine/Metabolic: Reports: None Hematologic: Reports: None Immunologic: Reports: None Dermatologic: Reports: None Oncologic: Reports: Other (See Below) Other Oncologic Family History: Mother with breast cancer in her 50s - Caffeine Use Caffeine Use: Reports: Coffee (Occasional). 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) ED ROS GENERAL - Review of Systems Review Of Systems: Unable To Obtain ED EXAM, GENERAL - Physical Exam Exam: Not Obtained Course - Vital Signs Last Recorded V/S: Last Vital Signs Temp 37.2 C 09/22/18 19:43 Pulse 79 09/22/18 19:43 Resp 12 09/22/18 19:43 BP 124/82 09/22/18 19:43 Pulse Ox 97 09/22/18 19:43 - Orders/Labs/Meds Orders: Active Orders 24 hr Category Date Time Status ACETAMINOPHEN [CHEM] Stat Lab 09/22/18 19:59 Ordered CBC WITH AUTO DIFF [HEME] Stat Lab 09/22/18 19:59 Ordered COMPREHENSIVE METABOLIC PN,CMP [CHEM] Stat Lab 09/22/18 19:59 Ordered DRUG SCREEN, URINE [URCHEM] Stat Lab 09/22/18 19:59 Ordered ETOH [ETHANOL BLOOD MEDICAL] [CHEM] Stat Lab 09/22/18 19:59 Ordered INR,PT,PROTHROMBIN TIME [COAG] Stat Lab 09/22/18 20:18 Ordered UA W/MICROSCOPIC [URIN] Stat Lab 09/22/18 19:59 Ordered Sodium Chloride 0.9% [Saline Flush] Med 09/22/18 19:59 Active 10 ml FLUSH ASDIRECTED PRN Saline Lock Insert [OM.PC] Stat Oth 09/22/18 19:59 Ordered Medication Orders Sodium Chloride (Saline Flush) 10 ml FLUSH ASDIRECTED PRN PRN Reason: Keep Vein Open Meds: Medications Generic Name Dose Route Start Last Admin Trade Name Freq PRN Reason Stop Dose Admin Sodium Chloride 10 ml 09/22/18 19:59 Saline Flush FLUSH ASDIRECTED PRN Keep Vein Open Discontinued Medications Generic Name Dose Route Start Last Admin Trade Name Freq PRN Reason Stop Dose Admin Sodium Chloride 1,000 mls @ 999 mls/hr 09/22/18 20:18 Normal Saline IV 09/22/18 21:18 .BOLUS ONE Departure - Departure Time of Disposition: 20:20 Disposition: Against Medical Advice 07 Clinical Impression: Overdose Qualifiers: Encounter type: initial encounter Injury intent: intentional self-harm Qualified Code(s): T50.902A - Poisoning by unspecified drugs, medicaments and biological substances, intentional self-harm, initial encounter - Discharge Information Referrals: Nicol Vieyra PA-C [Primary Care Provider] - Forms: ED Department Discharge - My Orders Last 24 Hours: My Active Orders 09/22/18 19:59 ACETAMINOPHEN [CHEM] Stat CBC WITH AUTO DIFF [HEME] Stat COMPREHENSIVE METABOLIC PN,CMP [CHEM] Stat DRUG SCREEN, URINE [URCHEM] Stat ETOH [ETHANOL BLOOD MEDICAL] [CHEM] Stat UA W/MICROSCOPIC [URIN] Stat Sodium Chloride 0.9% [Saline Flush] 10 ml FLUSH ASDIRECTED PRN Saline Lock Insert [OM.PC] Stat 09/22/18 20:18 INR,PT,PROTHROMBIN TIME [COAG] Stat - Assessment/Plan Last 24 Hours: My Active Orders 09/22/18 19:59 ACETAMINOPHEN [CHEM] Stat CBC WITH AUTO DIFF [HEME] Stat COMPREHENSIVE METABOLIC PN,CMP [CHEM] Stat DRUG SCREEN, URINE [URCHEM] Stat ETOH [ETHANOL BLOOD MEDICAL] [CHEM] Stat UA W/MICROSCOPIC [URIN] Stat Sodium Chloride 0.9% [Saline Flush] 10 ml FLUSH ASDIRECTED PRN Saline Lock Insert [OM.PC] Stat 09/22/18 20:18 INR,PT,PROTHROMBIN TIME [COAG] Stat
[2018-09-22] MEDS ORDERED: Sodium Chloride 0.9% 1,000 ML IV ONE (20:18)
== END 2018-09-22 20:30 | disposition left against medical advice (07) ==
LOC: LL.ED 19:39
DX: T50.902A Poisoning by unspecified drugs, medicaments and biological substances, intentional self-harm, initial encounter (principal); E78.2 Mixed hyperlipidemia; J44.9 Chronic obstructive pulmonary disease, unspecified; E03.9 Hypothyroidism, unspecified; F32.9 Major depressive disorder, single episode, unspecified; Z79.899 Other long term (current) drug therapy
CPT/HCPCS: 99284

== ENCOUNTER 2018-09-22 21:48 | Emergency (ER) | payer OTHER ==
--- NOTE | 2018-09-22 22:09 | EDM.PDOCBH ---
ED HPI GENERAL MEDICAL PROBLEM - General Chief Complaint: Drug or Alcohol Abuse Stated Complaint: suicide attempt Time Seen by Provider: 09/22/18 21:50 Source of Information: Reports: Patient, Police History Limitations: Reports: No Limitations - History of Present Illness INITIAL COMMENTS - FREE TEXT/NARRATIVE: Patient brought to ER initially by friend who was concerned that patient had said that he took a bunch of random pills early after lunch. Patient cannot name most of what he took, nor overall quantity. Possible meds include Tramadol and Thyroid, Flexeril, a statin, and "whatever else was laying around the house". Patient had flat affect but made good eye contact. No obvious acute distress. Ambulated well. Patient says that he has been depressed for years and had one previous suicide attempt but did not receive any specific treatment for that episode. Cites recent contentious issues between his mother and himself as one of the main triggers for his ingestion earlier today. Nurse called poison control who stated that if patient took more than 30-40 thyroid pills that there could be significant issues in 2-3 days due to delayed effect. Initial labs requested as well as IV/Fluids during initial interview process. When lab came into the room to draw patient's labs, patient suddenly stated that he wanted to go home and go to sleep. He pulled off BP cuff. He was asked at this point multiple times if he was suicidal and he said no. When asked what had changed since he took the pills earlier today, he said that he felt better and just wanted to go home and go to sleep. He was informed as to Poison Control's concern as to delayed effects of thyroid medication and that it would be best to have him medically observed, patient did not care and continued to head towards hospital exit. He denies being homicidal. He was asked if he could have someone stay with him tonight and he said that he could call a friend. It was stressed to him that he should not be alone. Friend accompanying patient felt that patient was not suicidal, but instead was feeling really low. Friend said that he would be willing to stay with patient for awhile after discharge while it was arranged to have someone else come and assist. After they left, it was felt appropriate to contact the local police as it was felt by staff that patient still needed to be evaluated and was making unsafe decisions and was at risk for harming himself. Local officer made welfare check at our request after having to verify patient's real address with patient' s mother as he did not give us the real address of his apartment (he instead gave us his mother's address). Shortly thereafter EMS was paged out to patient' s address at request of the police communications dispatcher. Patient was returned to us by EMS. It was reported to us that although belt was around neck when police and patient's mother entered the apartment, it was not tightened to the point of asphyxiation. Patient looked at officer as belt was removed from neck and said "I need help". He willingly was transported to the ER. - Related Data Allergies Allergy/AdvReac Type Severity Reaction Status Date / Time No Known Allergies Allergy Verified 09/22/18 22:05 Home Meds: Home Meds Levothyroxine 150 mcg PO ACBREAKFAST 11/07/16 [History] atorvaSTATin [Lipitor] 40 mg PO DAILY 09/22/18 [History] Past Medical History HEENT History: Reports: Other (See Below) Other HEENT History: Right-sided strabismus convergence Cardiovascular History: Reports: Arrhythmia, High Cholesterol, Syncope, Other ( See Below) Other Cardiovascular History: Syncopal episode initially on 07/12/15 with recurrent episodes since that time, hyperlipidemia and triglyceridemia, right bundle branch block Respiratory History: Reports: COPD, Intubation, Previous, Other (See Below) Other Respiratory History: Patient with history of premature delivery at 32 weeks gestation with and NICU care and intubation, COPD by chest x-ray with history of tobacco and marijuana use Gastrointestinal History: Reports: Chronic Constipation, GERD, Hemorrhoids, Jaundice, Other (See Below) Other Gastrointestinal History: jaundice secondary to prematurity Genitourinary History: Reports: None, Other (See Below) Other Genitourinary History: Although nonspecific history of previous episode of mild renal insufficiency by medical records Musculoskeletal History: Reports: Arthritis, Back Pain, Chronic, Fracture, Osteoarthritis, Other (See Below) Other Musculoskeletal History: Boxer's fracture of the fifth metacarpal of the left hand initially at age 15 and then at age 17 Neurological History: Reports: Concussion, Head Trauma, Other (See Below) Other Neuro History: Head concussion at about age 12 Psychiatric History: Reports: Addiction, Anxiety, Depression, Suicidal Ideation , Other (See Below) Other Psychiatric History: Anxiety and depression with suicidal ideation without attempt at about age 13, chronic illicit drug and tobacco use Endocrine/Metabolic History: Reports: Hypothyroidism, Other (See Below) Other Endocrine/Metabolic History: Hypothyroidism since with history of previous medication noncompliance, thymus hyperplasia of unknown etiology Hematologic History: Reports: None Immunologic History: Reports: None Oncologic (Cancer) History: Reports: None Dermatologic History: Reports: Eczema, Other (See Below) Other Dermatologic History: Eczema on the hands with no current therapy - Infectious Disease History Infectious Disease History: Reports: Chicken Pox, Measles - Past Surgical History Head Surgeries/Procedures: Reports: None HEENT Surgical History: Reports: None Cardiovascular Surgical History: Reports: None Respiratory Surgical History: Reports: None GI Surgical History: Reports: None Male Surgical History: Reports: Circumcision, Other (See Below) Other Male Surgeries/Procedures: Circumcision as an infant Endocrine Surgical History: Reports: None Neurological Surgical History: Reports: None Musculoskeletal Surgical History: Reports: None Oncologic Surgical History: Reports: None Dermatological Surgical History: Reports: Other (See Below) - Past Imaging History Past Imaging History: Reports: CAT Scan (CT of the chest, abdomen, and pelvis all with IV contrast on 11/07/16, CT of the head at age 12 at time of head concussion), MRI (Apparent MRI of the chest in October 2016 in [place]), Stress Testing (Inconclusive Cardiolite stress test on 07/19/16 secondary to artifacts in the Cardiolite scan) Social & Family History - Family History HEENT: Reports: None Cardiac: Reports: CAD, Heart Failure, High Cholesterol, SC, Stent, Other (See Below) Other Cardiac Family History: Maternal uncle with fatal SC at age 54, father with SC at age 46, maternal aunt with SC in PTCA/stent times 2 at age 54, mother with SC at age 54, mother with hyperlipidemia Respiratory: Reports: None GI: Reports: Cholelithiasis, Other (See Below) Other GI Family History: Brother with appendectomy at age 31, sister with cholecystectomy at age 18 : Reports: None OBGYN: Reports: None Musculoskeletal: Reports: Arthritis, Osteoarthritis, RA, Other (See Below) Other Musculoskeletal Family History: Maternal grandmother with rheumatoid arthritis Neurological: Reports: CVA, Other (See Below) Other Neurological Family History: Brother with history of CVA x2 in his early 30s, mother with CVA at age 55 Psychiatric: Reports: Anxiety, Depression, Suicide Attempt, Other (See Below) Other Psychiatric Family History: Father with anxiety depression disorder secondary to marital problems with successful suicide at age 46 Endocrine/Metabolic: Reports: None Hematologic: Reports: None Immunologic: Reports: None Dermatologic: Reports: None Oncologic: Reports: Other (See Below) Other Oncologic Family History: Mother with breast cancer in her 50s - Tobacco Use Smoking Status *Q: Current Every Day Smoker Packs/Tins Daily: 0.7 - Caffeine Use Caffeine Use: Reports: Coffee (Occasional). 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 Denies: Confusion , Hallucinations, Homicidal Ideation, Mood Lability Hematologic/Lymphatic: Reports: No Symptoms ED EXAM, BEHAVIORAL HEALTH - Physical Exam Exam: See Below Exam Limited By: No Limitations General Appearance: Alert, No Apparent Distress, Other (discheveled appearance) Eye Exam: Bilateral Eye: EOMI, PERRL Ears: Normal External Exam Nose: No: Nasal Deformity, Nasal Swelling, Nasal Drainage Throat/Mouth: Normal Lips, Normal Voice, No Airway Compromise Head: Atraumatic, Normocephalic Neck: Supple, Non-Tender Respiratory/Chest: No Respiratory Distress, Lungs Clear, Normal Breath Sounds, No Accessory Muscle Use, Chest Non-Tender Cardiovascular: Normal Peripheral Pulses, Regular Rate, Rhythm, No Edema, No Murmur GI/Abdominal: Normal Bowel Sounds, Soft, Non-Tender, No Distention (Male) Exam: Deferred Rectal (Males) Exam: Deferred Back Exam: No: CVA Tenderness (L), CVA Tenderness (R), Muscle Spasm Extremities: Normal Range of Motion, Non-Tender, Normal Capillary Refill Neurological: Alert, CN II-XII Intact, Normal Cognition, Normal Gait, Normal Reflexes, No Motor/Sensory Deficits, Oriented x 3 Psychiatric: Oriented, Depressed Mood, Flat Affect, Tearful, Suicidal Thoughts. No: Agitated, Uncooperative, Withdrawn, Flight of Ideas, Homicidal Thoughts, Phobic, Taoism Delusions, Tangential Thoughts, Auditory Hallucinations, Visual Hallucinations, Grandiose Thoughts, Pressured Speech, Paranoid Thoughts, Threatening Behavior Skin Exam: Warm, Dry EKG INTERPRETATION EKG Date: 09/22/18 Time: 21:53 Rhythm: NSR Rate (Beats/Min): 72 Ackley: Normal P-Wave: Present QRS: Normal ST-T: Normal QT: Normal Comparison: Change From Previous EKG (previous EKG had bradycardic rate) COURSE, BEHAVIORAL HEALTH COMP - Course Vital Signs: Last Vital Signs Temp 37.0 C 09/22/18 22:03 Pulse 65 09/22/18 22:03 Resp 20 09/22/18 22:03 BP 143/90 H 09/22/18 22:03 Pulse Ox 96 09/22/18 22:03 Orders, Labs, Meds: Active Orders 24 hr Category Date Time Status EKG Documentation Completion [RC] ASDIRECTED Care 09/22/18 21:57 Active Sodium Chloride 0.9% [Normal Saline] 1,000 ml Med 09/22/18 21:55 Active IV .BOLUS Sodium Chloride 0.9% [Saline Flush] Med 09/22/18 21:55 Active 10 ml FLUSH ASDIRECTED PRN Saline Lock Insert [OM.PC] Stat Oth 09/22/18 21:54 Ordered Medication Orders Sodium Chloride (Normal Saline) 1,000 mls @ 999 mls/hr IV .BOLUS ONE Stop: 09/22/18 22:55 Last Admin: 09/22/18 22:46 Dose: 999 mls/hr Sodium Chloride (Saline Flush) 10 ml FLUSH ASDIRECTED PRN PRN Reason: Keep Vein Open Last Admin: 09/22/18 22:47 Dose: 10 ml Laboratory Tests 09/22/18 09/22/18 09/22/18 Range/Units 22:00 22:00 22:00 WBC 11.6 H (4.0-10.2) K/uL RBC 5.31 (4.33-5.41) M/uL Hgb 17.3 H (13.1-16.8) g/dL Hct 50.9 H (39.0-49.0) % MCV 95.9 D (84.0-98.0) fL MCH 32.6 (28.2-33.3) pg MCHC 34.0 (31.7-36.0) g/dL RDW 12.7 (11.2-14.1) % Plt Count 217 (150-350) K/uL Neut % (Auto) 60.8 (45.0-80.0) % Lymph % (Auto) 29.7 (10.0-50.0) % Crosby % (Auto) 8.1 (2.0-14.0) % Eos % (Auto) 1.1 (0.0-5.0) % Baso % (Auto) 0.3 (0.0-2.0) % Neut # (Auto) 7.02 H (1.40-7.00) K/uL Lymph # (Auto) 3.43 (0.50-3.50) K/uL Crosby # (Auto) 0.94 (0.00-1.00) K/uL Eos # (Auto) 0.13 (0.00-0.50) K/uL Baso # (Auto) 0.04 (0.00-0.20) K/uL Sodium (136-145) mmol/L Potassium (3.5-5.1) mmol/L Chloride (98-107) mmol/L Carbon Dioxide (21.0-32.0) mmol/L BUN (7-18) mg/dL Creatinine (0.51-1.17) mg/dL Est Cr Clr Drug Dosing Estimated GFR (MDRD) mL/min Glucose (74-106) mg/dL Calcium (8.5-10.1) mg/dL Total Bilirubin (0.2-1.0) mg/dL AST (15-37) U/L ALT (12-78) U/L Alkaline Phosphatase (46-116) IU/L Total Protein (6.4-8.2) g/dL Albumin (3.4-5.0) g/dL Specimen Type Urinblad Urine Color Yellow Urine Appearance Clear Urine pH 6.0 (5.0-9.0) Ur Specific Aragon >= 1.030 (1.005-1.030) Urine Protein Trace H (NEGATIVE) mg/dL Urine Glucose (UA) Negative (NEGATIVE) mg/dL Urine Ketones 15 H (NEGATIVE) mg/dL Urine Occult Blood Negative (NEGATIVE) Urine Nitrite Negative (NEGATIVE) Urine Bilirubin Small H (NEGATIVE) Urine Urobilinogen 0.2 (0.2-1.0) E.U./dL Ur Leukocyte Esterase Negative (NEGATIVE) Urine RBC 0-5 /HPF Urine WBC 0-5 /HPF Ur Epithelial Cells Rare /LPF Urine Bacteria Rare (NONE TO FEW) /HPF Urine Opiates Screen Negative (NEGATIVE) Urine Methadone Screen Negative (NEGATIVE) Acetaminophen (10.0-30.0) ug/mL U Acetaminophen Screen TNP Ur Barbiturates Screen Negative (NEGATIVE) Ur Tricyclics Screen Negative (NEGATIVE) Ur Phencyclidine Scrn TNP Ur Amphetamine Screen Positive H (NEGATIVE) U Methamphetamines Scrn Positive H (NEGATIVE) U Benzodiazepines Scrn Negative (NEGATIVE) U Cocaine Metab Screen Negative (NEGATIVE) U Marijuana (THC) Screen Negative (NEGATIVE) Ethyl Alcohol (0.000-0.080) g/dL 09/22/18 Range/Units 22:00 WBC (4.0-10.2) K/uL RBC (4.33-5.41) M/uL Hgb (13.1-16.8) g/dL Hct (39.0-49.0) % MCV (84.0-98.0) fL MCH (28.2-33.3) pg MCHC (31.7-36.0) g/dL RDW (11.2-14.1) % Plt Count (150-350) K/uL Neut % (Auto) (45.0-80.0) % Lymph % (Auto) (10.0-50.0) % Crosby % (Auto) (2.0-14.0) % Eos % (Auto) (0.0-5.0) % Baso % (Auto) (0.0-2.0) % Neut # (Auto) (1.40-7.00) K/uL Lymph # (Auto) (0.50-3.50) K/uL Crosby # (Auto) (0.00-1.00) K/uL Eos # (Auto) (0.00-0.50) K/uL Baso # (Auto) (0.00-0.20) K/uL Sodium 140 (136-145) mmol/L Potassium 3.9 (3.5-5.1) mmol/L Chloride 103 (98-107) mmol/L Carbon Dioxide 28.0 (21.0-32.0) mmol/L BUN 17 (7-18) mg/dL Creatinine 1.29 H (0.51-1.17) mg/dL Est Cr Clr Drug Dosing TNP Estimated GFR (MDRD) > 60 mL/min Glucose 87 (74-106) mg/dL Calcium 9.4 (8.5-10.1) mg/dL Total Bilirubin 1.4 H (0.2-1.0) mg/dL AST 21 (15-37) U/L ALT 30 (12-78) U/L Alkaline Phosphatase 77 (46-116) IU/L Total Protein 7.5 (6.4-8.2) g/dL Albumin 4.3 (3.4-5.0) g/dL Specimen Type Urine Color Urine Appearance Urine pH (5.0-9.0) Ur Specific Aragon (1.005-1.030) Urine Protein (NEGATIVE) mg/dL Urine Glucose (UA) (NEGATIVE) mg/dL Urine Ketones (NEGATIVE) mg/dL Urine Occult Blood (NEGATIVE) Urine Nitrite (NEGATIVE) Urine Bilirubin (NEGATIVE) Urine Urobilinogen (0.2-1.0) E.U./dL Ur Leukocyte Esterase (NEGATIVE) Urine RBC /HPF Urine WBC /HPF Ur Epithelial Cells /LPF Urine Bacteria (NONE TO FEW) /HPF Urine Opiates Screen (NEGATIVE) Urine Methadone Screen (NEGATIVE) Acetaminophen < 10.0 L (10.0-30.0) ug/mL U Acetaminophen Screen Ur Barbiturates Screen (NEGATIVE) Ur Tricyclics Screen (NEGATIVE) Ur Phencyclidine Scrn Ur Amphetamine Screen (NEGATIVE) U Methamphetamines Scrn (NEGATIVE) U Benzodiazepines Scrn (NEGATIVE) U Cocaine Metab Screen (NEGATIVE) U Marijuana (THC) Screen (NEGATIVE) Ethyl Alcohol 0.001 (0.000-0.080) g/dL Medications Generic Name Dose Route Start Last Admin Trade Name Freq PRN Reason Stop Dose Admin Sodium Chloride 1,000 mls @ 999 mls/hr 09/22/18 21:55 09/22/18 22:46 Normal Saline IV 09/22/18 22:55 999 mls/hr .BOLUS ONE Administration Sodium Chloride 10 ml 09/22/18 21:55 09/22/18 22:47 Saline Flush FLUSH 10 ml ASDIRECTED PRN Administration Keep Vein Open Discontinued Medications Generic Name Dose Route Start Last Admin Trade Name Freq PRN Reason Stop Dose Admin Lorazepam 1 mg 09/22/18 22:21 09/22/18 22:46 Ativan IVPUSH 09/22/18 22:22 1 mg ONETIME ONE Administration Discharge vs Psych Eval/Treatment:: 09/22/18 23:06 Labs negative for acetaminophen/ETOH. Bili mildly elevated. Elevated Hgb may reflect dehydration and/or smoking habit. Drug screen + for meth however patient denies any meth use. Only admits to using pot periodically, even yesterday. However THC is negative on screen. Poison control had been contacted prior to patient leaving [facility] during initial visit and had main concern that patient had taken multiple thyroid pills. If he had taken enough this could cause significant problems 24-48 hours after ingestion. Recommended that he be observed minimally overnight. IV fluids initiated. Patient received single dose Ativan Call placed to [facility] in [place] and patient accepted by [facility]. Patient placed on 24 hour hold prior to transport to [place]. It was stressed to patient and patient's mother that we feel patient should be placed in an inpatient program for evaluation and treatment of his depression after his observation for the overdose has been completed. Departure - Departure Time of Disposition: 23:05 Disposition: DC/Tfer to Acute Hospital 02 Clinical Impression: Mixed anxiety depressive disorder, Suicide attempt Overdose Qualifiers: Encounter type: initial encounter Injury intent: intentional self-harm Qualified Code(s): T50.902A - Poisoning by unspecified drugs, medicaments and biological substances, intentional self-harm, initial encounter - Discharge Information *PRESCRIPTION DRUG MONITORING PROGRAM REVIEWED*: Not Applicable *COPY OF PRESCRIPTION DRUG MONITORING REPORT IN PATIENT PAUL: Not Applicable Referrals: Nicol Vieyra PA-C [Primary Care Provider] - - My Orders Last 24 Hours: My Active Orders 09/22/18 21:54 Saline Lock Insert [OM.PC] Stat 09/22/18 21:55 Sodium Chloride 0.9% [Normal Saline] 1,000 ml IV .BOLUS Sodium Chloride 0.9% [Saline Flush] 10 ml FLUSH ASDIRECTED PRN 09/22/18 21:57 EKG Documentation Completion [RC] ASDIRECTED - Assessment/Plan Last 24 Hours: My Active Orders 09/22/18 21:54 Saline Lock Insert [OM.PC] Stat 09/22/18 21:55 Sodium Chloride 0.9% [Normal Saline] 1,000 ml IV .BOLUS Sodium Chloride 0.9% [Saline Flush] 10 ml FLUSH ASDIRECTED PRN 09/22/18 21:57 EKG Documentation Completion [RC] ASDIRECTED
[2018-09-22 22:30] LABS: CHLORIDE,CL 103 mmol/L (98-107); SODIUM,NA 140 mmol/L (136-145)
[2018-09-22 22:31] LABS: ACETAMINOPHEN < 10.0 ug/mL (10.0-30.0)
[2018-09-22] MEDS: LORazepam 2 MG/ML SDV IVPUSH ONE (22:46)
[2018-09-22] MEDS: Sodium Chloride 0.9% 1,000 ML IV ONE (22:46)
[2018-09-22] MEDS: Sodium Chloride 0.9% 10 ML Syringe FLUSH PRN (22:47)
[2018-09-22 23:24] VITALS: BP 131/74
== END 2018-09-22 23:30 ==
LOC: LL.ED 21:48
DX: T43.622A Poisoning by amphetamines, intentional self-harm, initial encounter (principal); E78.2 Mixed hyperlipidemia; E03.9 Hypothyroidism, unspecified; J44.9 Chronic obstructive pulmonary disease, unspecified; Z79.899 Other long term (current) drug therapy
CPT/HCPCS: 36415; 80053; 80305-QW; 81001; 85025; 93005; 96361; 96374; 99285; G0480; J2060; J7030

== ENCOUNTER 2018-12-02 08:51 | Emergency (ER) | payer MEDICAID, OTHER ==
--- NOTE | 2018-12-02 09:09 | EDM.PDOC ---
ED HPI GENERAL MEDICAL PROBLEM - General Chief Complaint: Back Pain or Injury Stated Complaint: back pain Time Seen by Provider: 12/02/18 09:00 Source of Information: Reports: Patient, Family (Mother), Old Records ([facility] EMR. No paper hospital chart available.) History Limitations: Reports: No Limitations - History of Present Illness INITIAL COMMENTS - FREE TEXT/NARRATIVE: The patient was brought to the emergency room via private automobile by his mother for evaluation of a Workmen's Compensation injury, which occurred at about 07:45 AM this morning. The patient was moving a 75-100 pound of steel by himself when he twisted his low back and heard a pop. He complains of 7/10 sharp bilateral mid lumbar pain with no radiation, paresthesias, fall, neurological deficits or other complaints or injuries. He does have a history of chronic low back pain. The patient did not take any medications or have any therapy prior to arrival to this facility. No recent history of abdominal pain, heartburn, nausea, diarrhea, melena, gross hematochezia, or any food intolerance , including fatty foods, etc.. The patient also denies any recent fever, cough, wheezing, dyspnea, etc.. Onset: Today, Sudden Onset Date: 12/02/18 Onset Time: 07:45 Duration: Constant Location: Reports: Back. Denies: Head, Face, Neck, Chest, Abdomen, Pelvis, Upper Extremity, Left, Upper Extremity, Right, Lower Extremity, Left, Lower Extremity, Right, Radiates to Quality: Reports: Same as Previous Episode, Sharp Severity: Moderate Improves with: Reports: Rest Worsens with: Reports: Movement Context: Reports: Lifting (As above), Trauma (As above) Associated Symptoms: Denies: Confusion, Chest Pain, Cough, Diaphoresis, Fever/ Chills, Headaches, Loss of Appetite, Malaise, Nausea/Vomiting, Shortness of Breath, Syncope, Weakness Treatments [employer]: Reports: Other (see below) (None) Bilateral Lower Back Pain Score (Numeric/FACES): 7 - Related Data Allergies Allergy/AdvReac Type Severity Reaction Status Date / Time No Known Allergies Allergy Verified 12/02/18 08:55 Home Meds: Home Meds Levothyroxine 150 mcg PO ACBREAKFAST 11/07/16 [History] atorvaSTATin [Lipitor] 40 mg PO DAILY 09/22/18 [History] Cyclobenzaprine [Flexeril] 10 mg PO TID PRN #30 tab 12/02/18 [Rx] Past Medical History HEENT History: Reports: Other (See Below). Denies: Allergic Rhinitis, Cataract , Glaucoma, Hard of Hearing, Impaired Vision, Macular Degeneration, Retinal Detachment Other HEENT History: Right-sided strabismus convergence Cardiovascular History: Reports: Arrhythmia, High Cholesterol, Syncope, Other ( See Below). Denies: Afib, Aneurysm, Blood Clots/VTE/DVT, CAD, Heart Failure, Heart Murmur, Hypertension, NC, PVD Other Cardiovascular History: Syncopal episode initially on 07/12/15 with recurrent episodes since that time with last near-syncopal episode on 04/29/17 and evaluation this facility. hyperlipidemia and triglyceridemia, incomplete right bundle branch block, bradycardia Respiratory History: Reports: COPD, Intubation, Previous, Other (See Below). Denies: Asthma, Bronchitis, Recurrent, Intubation, Difficult, PE, Pneumothorax, Sleep Apnea, TB Other Respiratory History: Patient with history of premature delivery at 32 weeks gestation with and NICU care and intubation, COPD by chest x-ray with history of tobacco and marijuana use and no current medical therapy. Gastrointestinal History: Reports: Chronic Constipation, GERD, Hemorrhoids, Jaundice, Other (See Below). Denies: Bowel Obstruction, Celiac Disease, Cholelithiasis, Colon Polyp, Gastritis, GI Bleed, Inflammatory Bowel Disease, Irritable Bowel Syndrome, Pancreatitis, PUD Other Gastrointestinal History: Gilbert's syndrome diagnosed on 04/29/17. jaundice secondary to prematurity Genitourinary History: Reports: Other (See Below). Denies: Acute Renal Failure , BPH, Chronic Renal Insuffiency, Renal Calculus, Retention, Urinary, STD, Urinary Incontinence, UTI, Recurrent Other Genitourinary History: Although nonspecific history of previous episode of mild renal insufficiency by medical records Musculoskeletal History: Reports: Arthritis, Back Pain, Chronic, Fracture, Osteoarthritis, Other (See Below). Denies: Gout, Neck Pain, Chronic, RA, SLE Other Musculoskeletal History: Boxer's fracture of the fifth metacarpal of the left hand initially at age 15 and then at age 17 Neurological History: Reports: Concussion, Head Trauma, Other (See Below). Denies: Cerebral Aneurysms, CVA, Headaches, Chronic, Migraines, MS, Neuropathy, Diabetic, Neuropathy, Peripheral, Parkinson's, Seizure, TIA Other Neuro History: Head concussion at about age 12 Psychiatric History: Reports: Addiction, Anxiety, Depression, Psych Hospitalization(s), Suicide Attempt, Suicidal Ideation, Other (See Below). Denies: Abuse, Victim of, ADD, ADHD, Dementia, Psychosis, PTSD Other Psychiatric History: Anxiety and depression with suicidal ideation without attempt initially at about age 13. Subsequent suicide attempt on with multiple pill overdose and evaluation in this facility with patient initially leaving [facility] and subsequently transferred to [facility]. Chronic illicit drug and tobacco use. Endocrine/Metabolic History: Reports: Hypothyroidism, Other (See Below). Denies : Diabetes, Type I, Diabetes, Type II, Diabetes Mellitus, Type 3c, IDDM, Obesity /BMI 30+, Osteopenia, Osteoporosis Other Endocrine/Metabolic History: Hypothyroidism since with history of previous medication noncompliance, thymus hyperplasia of unknown etiology Hematologic History: Reports: None. Denies: Anemia, Blood Transfusion(s), Iron Deficiency Immunologic History: Reports: None. Denies: AIDS, HIV, SLE Oncologic (Cancer) History: Reports: None. Denies: Basal Cell Carcinoma, Colon , Hodgkin's Lymphoma, Leukemia, Lymphoma, Metastatic, Non-Hodgkin's Lymphoma, Prostate, Squamous Cell Carcinoma Dermatologic History: Reports: Eczema, Other (See Below). Denies: Psoriasis Other Dermatologic History: Eczema on the hands with no current therapy - Infectious Disease History Infectious Disease History: Reports: Chicken Pox, Measles. Denies: C-Difficile , Meningitis, Mononucleosis, MRSA, Mumps, Pertussis (Whooping Cough), Rheumatic Fever, RSV, Rubella, Scarlet Fever, Shingles, TB, VRE - Past Surgical History Head Surgeries/Procedures: Reports: None HEENT Surgical History: Reports: None. Denies: Adenoidectomy, Cataract Surgery , Eye Surgery, Laser Surgery, LASIK, Myringotomy w Tube(s), Naso-Sinus Surgery, Oral Surgery, Tonsillectomy Cardiovascular Surgical History: Reports: None. Denies: Varicose, Vascular Surgery Respiratory Surgical History: Reports: None. Denies: Thoracentesis GI Surgical History: Reports: None. Denies: Appendectomy, Cholecystectomy, Colonoscopy, EGD, Hernia, Abdominal, Hernia, Inguinal, Hernia Repair/Other Male Surgical History: Reports: Circumcision, Other (See Below). Denies: Vasectomy Other Male Surgeries/Procedures: Circumcision as an infant Endocrine Surgical History: Reports: None Neurological Surgical History: Reports: None. Denies: C-Spine, Discectomy, Laminectomy, Lumbar Spine, Sacral Spine, Spinal Fusion, Thoracic Spine, Vertebroplasty Musculoskeletal Surgical History: Reports: None. Denies: Arthroscopic Procedure , Carpal Tunnel, Ganglion Cyst, Joint Replacement, ORIF, Shoulder Surgery Oncologic Surgical History: Reports: None Dermatological Surgical History: Reports: Other (See Below) Other Dermatological Surgeries/Procedures: Excision of sebaceous cysts 2 from the left buttocks in January 2016. - Past Imaging History Past Imaging History: Reports: Cardiac Echo (04/30/17 somewhat suboptimal with ejection fraction of 5560 percent.), CAT Scan (CT of the chest, abdomen, and pelvis all with IV contrast on 11/07/16, CT of the head at age 12 at time of head concussion), MRI (MRI of the brain on 05/06/17. Apparent MRI of the chest in October 2016 in [place].), Stress Testing (Inconclusive Cardiolite stress test on 07/19/16 secondary to artifacts in the Cardiolite scan) Social & Family History - Family History HEENT: Reports: None. Denies: Allergic Rhinitis, Glaucoma, Macular Degeneration , Retinal Detachment Cardiac: Reports: CAD, Heart Failure, High Cholesterol, NC, Stent, Other (See Below). Denies: Afib, Arrhythmia, Blood Clots/VTE/DVT, Heart Murmur, Hypertension, PVD/COD, Syncope Other Cardiac Family History: Maternal uncle with fatal NC at age 54, father with NC at age 46, maternal aunt with NC in PTCA/stent times 2 at age 54, mother with NC at age 54, mother with hyperlipidemia Respiratory: Reports: None. Denies: Asthma, COPD, PE, Pneumothorax, Sleep Apnea GI: Reports: Cholelithiasis, Other (See Below). Denies: Celiac Disease, Colon Polyps, GERD, GI bleed, Inflammatory Bowel Disease, Irritable Bowel Syndrome, PUD Other GI Family History: Brother with appendectomy at age 31, sister with cholecystectomy at age 18 : Reports: None. Denies: Dialysis, Renal Calculus, Renal Disease/ Insufficiency OBGYN: Reports: None. Denies: Endometriosis, Recurrent Spontaneous Musculoskeletal: Reports: Arthritis, Osteoarthritis, RA, Other (See Below). Denies: Gout, SLE Other Musculoskeletal Family History: Maternal grandmother with rheumatoid arthritis Neurological: Reports: CVA, Other (See Below). Denies: Alzheimers Disease, Cerebral Aneurysms, Dementia, Migraines, MS, Neuropathy, Peripheral, Parkinson's , Seizure, TIA Other Neurological Family History: Brother with history of CVA x2 in his early 30s, mother with CVA at age 55 Psychiatric: Reports: Anxiety, Depression, Suicide Attempt, Other (See Below). Denies: Abuse, Victim of, ADD, ADHD, PTSD Other Psychiatric Family History: Father with anxiety depression disorder secondary to marital problems with successful suicide at age 46 Endocrine/Metabolic: Reports: None. Denies: Diabetes, Gestational, Diabetes, Type I, Diabetes, type II, Diabetes Mellitus, Type 3c, Hypothyroidism, IDDM Hematologic: Reports: None. Denies: Anemia Immunologic: Reports: None. Denies: AIDS, HIV, SLE Dermatologic: Reports: None. Denies: Eczema, Psoriasis Oncologic: Reports: Other (See Below). Denies: Colon, Hodgkin's Lymphoma, Leukemia, Lymphoma, Non-Hodgkin's Lymphoma, Prostate, Skin Other Oncologic Family History: Mother with breast cancer in her 50s - Tobacco Use Smoking Status *Q: Current Every Day Smoker Tobacco Use Within Last Twelve Months: Cigarettes Years of Tobacco use: 20 Packs/Tins Daily: 0.5 Packs/Tins Daily Comment: Started smoking at age 13 with average use of 10/08/ packs per day. Used Tobacco, but Quit: No Smoking Cessation Information Provided To Patient: Yes Second Hand Smoke Exposure: Yes Source of Second Hand Smoke Exposure: Mother smokes Second Hand Smoke Education Provided: Yes - Caffeine Use Caffeine Use: Reports: Coffee (Occasional). Denies: Energy Drinks, Soda, Tea Caffeine Use Comment: 2 cups of coffee per year - Alcohol Use Alcohol Use History: Yes Days Per Week of Alcohol Use: 0 Number of Drinks Per Day: 0 Number of Drinks Per Day Comment: No previous DWIs, problems with alcohol abuse , etc.. Previous use of 2 beers 2 times per week Total Drinks Per Week: 0 Alcohol Use in Last Twelve Months: Yes - Recreational Drug Use Recreational Drug Type: Reports: Marijuana/Hashish (Started at age 13 with current use of 2 times per week). Denies: Amphetamines (Speed), Cocaine, Heroin , Inhalants (Glues, Solvents, Aerosols), LSD (Acid), Methamphetamine, Morphine, Oxycodone - Sexual History Sexual History: Reports: Single Partner, Other (See Below) Other Sexual History Comment: Patient does practice safe sex - Living Situation & Occupation Living situation: Reports: ( in 2016 2 children who do not live with him), Alone Occupation: Employed ([employer]. 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 ED EXAM,LOWER BACK PAIN/INJURY - Physical Exam Exam: See Below Exam Limited By: No Limitations General Appearance: Alert, WD/WN, No Apparent Distress Head: Atraumatic, Normocephalic Neck: Normal Inspection, Supple, Non-Tender, Full Range of Motion. No: Lymphadenopathy (L), Lymphadenopathy (R), Thyromegaly Respiratory/Chest: No Respiratory Distress, Lungs Clear, Normal Breath Sounds, No Accessory Muscle Use, Chest Non-Tender. No: Pleural Rub, Retractions Cardiovascular: Normal Peripheral Pulses, Regular Rate, Rhythm, No Edema, No Gallop, No JVD, No Murmur, No Rub. No: Gallop/S3, Gallop/S4, Friction Rub GI/Abdominal: Normal Bowel Sounds, Soft, Non-Tender, No Organomegaly, No Distention, No Abnormal Bruit, No Mass, Pelvis Stable. No: Guarding (Male) Exam: Deferred Rectal (Males) Exam: Deferred Back Exam: Decreased Range of Motion (Mild secondary to low back pain), Muscle Spasm (Bilateral mid lumbar), Paraspinal Tenderness (Mild to moderate bilateral mid lumbar). No: CVA Tenderness (L), CVA Tenderness (R), Vertebral Tenderness Neurological: Alert, Normal Mood/Affect, Normal Dorsiflexion, CN II-XII Intact, Normal Plantar Flexion, Normal Gait, Normal Reflexes, No Motor/Sensory Deficits , Oriented x 3 Psychiatric: Normal Affect, Normal Mood Skin Exam: Warm, Dry, Intact, Normal Color, No Rash. No: Diaphoretic, Ecchymosis, Wound/Incision Lymphatic: No Adenopathy Course - Vital Signs Last Recorded V/S: Last Vital Signs Temp 36.2 C 12/02/18 08:54 Pulse 62 12/02/18 09:09 Resp 16 12/02/18 09:09 BP 101/65 12/02/18 09:09 Pulse Ox 100 12/02/18 09:09 Vital Signs - 24 hr 12/02/18 12/02/18 08:54 09:09 Temperature [ 36.2 C Temporal] Pulse, 71 62 Peripheral [ Left] Respiratory 16 16 Rate Blood Pressure 108/65 101/65 [Left Arm] O2 Sat by Pulse 100 100 Oximetry - Orders/Labs/Meds Orders: Active Orders 24 hr Category Date Time Status Lumbar Spine Min 4V [CR] Stat Exams 12/02/18 09:10 Ordered Obtain Past Medical Record [OM.PC] Routine Oth 12/02/18 09:10 Active Labs: None Meds: None - Radiology Interpretation Free Text/Narrative:: X-rays of the lumbar spine, complete including obliques, shows evidence of mild osteoarthritic changes especially in L5 and S1 with no evidence of significant decreased lordosis, acute fracture, dislocation, etc. Departure - Departure Time of Disposition: 21:57 Disposition: Home, Self-Care 01 Condition: Good Clinical Impression: Tobacco abuse counseling, Mixed anxiety depressive disorder, Peptic reflux disease, Illicit drug use, continuous Osteoarthritis Qualifiers: Osteoarthritis location: multiple joints Osteoarthritis type: primary Qualified Code(s): M15.0 - Primary generalized (osteo)arthritis Low back strain Qualifiers: Encounter type: initial encounter Qualified Code(s): S39.012A - Strain of muscle, fascia and tendon of lower back, initial encounter - Discharge Information *PRESCRIPTION DRUG MONITORING PROGRAM REVIEWED*: Not Applicable *COPY OF PRESCRIPTION DRUG MONITORING REPORT IN PATIENT PAUL: Not Applicable Prescriptions: Cyclobenzaprine [Flexeril] 10 mg PO TID PRN #30 tab PRN Reason: Spasms Referrals: Nicol Vieyra PA-C [Primary Care Provider] - Forms: ED Department Discharge, ED Return to Work/School Form Additional Instructions: 1. Followup with your regular provider in 7 days as directed. Bring these discharge instructions with you to that visit. 2. Work excuse- See Form 3. Tylenol 650 mg by mouth every 4 hours and/or OTC ibuprofen 2-3 tabs by mouth every 6 hours with food as directed./needed. You may stagger these medications for 48-72 hours only, which essentially means that you are receiving a pain medication about every 2 hours. 4. BenGay or equivalent, heating pad, and/or ice packs as directed. 5. Sedation precautions with Flexeril as discussed. 6. Stop all tobacco and marijuana use SAHARA as directed/per provided information and consider contacting [employer], etc.. 7. Immediately after this visit verify that your cellular telephone's voicemail has been activated and is empty. Also verify that your home telephone 's answering machine is operating properly and has space to receive messages. Note that it is sometimes necessary for us to be able to contact you at a later date to discuss your medical care. 8. Please remember that we are ALWAYS here for you and want to answer any questions you may have. Feel free to call the hospital any time and we call you back SAHARA. - Problem List & Annotations (1) Low back strain SNOMED Code(s): 921980045 Code(s): S39.012A - STRAIN OF MUSCLE, FASCIA AND TENDON OF LOWER BACK, INIT Status: Acute Priority: High Current Visit: Yes Onset Date: 12/02/18 Annotation/Comment:: Minor low back sprain with patient having a long history of intermittent low back pain. Symptomatic relief as per discharge instructions. Workmen's Compensation and work excuse forms were completed. Qualifiers: Encounter type: initial encounter Qualified Code(s): S39.012A - Strain of muscle, fascia and tendon of lower back, initial encounter (2) Osteoarthritis SNOMED Code(s): 898996368 Code(s): M19.90 - UNSPECIFIED OSTEOARTHRITIS, UNSPECIFIED SITE Status: Chronic Priority: Medium Current Visit: Yes Annotation/Comment:: Otherwise stable by history Qualifiers: Osteoarthritis location: multiple joints Osteoarthritis type: primary Qualified Code(s): M15.0 - Primary generalized (osteo)arthritis (3) Illicit drug use, continuous SNOMED Code(s): 480507182 Code(s): F19.90 - OTHER PSYCHOACTIVE SUBSTANCE USE, UNSPECIFIED, UNCOMPLICATED Status: Chronic Priority: High Current Visit: Yes Annotation/Comment:: Discontinuation of illicit drug use once again strongly recommended secondary to borderline COPD changes by chest x-ray in the past, anxiety depression disorder, etc. (4) Mixed anxiety depressive disorder SNOMED Code(s): 742424005 Code(s): F41.8 - OTHER SPECIFIED ANXIETY DISORDERS Status: Chronic Priority: Medium Current Visit: Yes Annotation/Comment:: Stable by history. Continue to observe closely by his regular providers, etc. Discontinue marijuana as above. (5) Peptic reflux disease SNOMED Code(s): 802967413 Code(s): K21.9 - GASTRO-ESOPHAGEAL REFLUX DISEASE WITHOUT ESOPHAGITIS Status: Chronic Priority: Medium Current Visit: Yes Onset Date: ~07/17/16 Annotation/Comment:: Stable by history (6) Tobacco abuse counseling SNOMED Code(s): 365841418, 148437558, 303287695 Code(s): Z71.6 - TOBACCO ABUSE COUNSELING Status: Chronic Priority: Medium Current Visit: Yes Annotation/Comment:: Tobacco cessation once again strongly encouraged both for the patient and his mother with tobacco cessation information provided at discharge - Problem List Review Problem List Initiated/Reviewed/Updated: Yes - My Orders Last 24 Hours: My Active Orders 12/02/18 09:10 Lumbar Spine Min 4V [CR] Stat Obtain Past Medical Record [OM.PC] Routine - Assessment/Plan Last 24 Hours: My Active Orders 12/02/18 09:10 Lumbar Spine Min 4V [CR] Stat Obtain Past Medical Record [OM.PC] Routine Assessment:: As above Plan: As above. Extensive precautions were given to the patient and his mother, who are in agreement with the treatment plan. See Patient Instructions for further treatment and plan.
[2018-12-02 09:10] VITALS: BP 101/65
== END 2018-12-02 09:57 | disposition home or self-care (01) ==
LOC: LL.ED 08:51
DX: S39.012A Strain of muscle, fascia and tendon of lower back, initial encounter (principal); F41.8 Other specified anxiety disorders; K21.9 Gastro-esophageal reflux disease without esophagitis; F19.90 Other psychoactive substance use, unspecified, uncomplicated; M15.0 Primary generalized (osteo)arthritis; J44.9 Chronic obstructive pulmonary disease, unspecified; F17.210 Nicotine dependence, cigarettes, uncomplicated; Z71.6 Tobacco abuse counseling; X50.1XXA Overexertion from prolonged static or awkward postures, initial encounter; Y93.89 Activity, other specified; Y92.89 Other specified places as the place of occurrence of the external cause; Y99.0 Civilian activity done for income or pay
CPT/HCPCS: 72110; 99283-25

== ENCOUNTER 2019-04-24 17:43 | Emergency (ER) | payer OTHER ==
[2019-04-24 17:52] VITALS: BP 111/72; PULSE 82
--- NOTE | 2019-04-24 18:01 | EDM.PDOC ---
ED HPI GENERAL MEDICAL PROBLEM - General Chief Complaint: Upper Extremity Injury/Pain Stated Complaint: left hand injury Time Seen by Provider: 04/24/19 18:01 Source of Information: Reports: Patient, Old Records ([facility] EMR. No paper hospital chart available.) History Limitations: Reports: No Limitations - History of Present Illness INITIAL COMMENTS - FREE TEXT/NARRATIVE: Patient drove himself to the emergency room via private automobile for evaluation of a possible left hand fracture after he slipped in the shower at about 16:30 hours this afternoon. Patient apparently landed on his left hand in a fist formation, and he has not taken any medications or performed any local treatment to this point. He does have a previous history of multiple left hand fractures in the past as below. No history of paresthesias, neurological deficits, neck pain, back pain, head injury, loss of consciousness, change in mental status, visual changes, etc. The patient denies any chest pain/pressure, heart flutter, dizziness, orthostasis, orthopnea, diaphoresis, paresthesias, recent decreased exercise tolerance, or any other anginal-type symptoms. No recent history of abdominal pain, heartburn, nausea, diarrhea, melena, gross hematochezia, or any food intolerance, including fatty foods, etc.. The patient also denies any recent fever, cough, wheezing, dyspnea, etc.. Onset: Today, Sudden Onset Date: 04/24/19 Onset Time: 16:30 Duration: Constant Location: Reports: Upper Extremity, Left. Denies: Head, Face, Neck, Chest, Abdomen, Back, Pelvis, Upper Extremity, Right, Radiates to Quality: Reports: Sharp, Stabbing, Throbbing Severity: Moderate Improves with: Reports: Rest Worsens with: Reports: Movement Context: Reports: Trauma (As above) Associated Symptoms: Reports: No Other Symptoms. Denies: Confusion, Chest Pain , Cough, Diaphoresis, Fever/Chills, Headaches, Loss of Appetite, Malaise, Nausea /Vomiting, Rash, Seizure, Shortness of Breath, Syncope, Weakness Treatments FRANCHISE MANAGER: Reports: Other (see below) (None) Left Hand Pain Score (Numeric/FACES): 8 - Related Data Allergies Allergy/AdvReac Type Severity Reaction Status Date / Time No Known Allergies Allergy Verified 04/24/19 17:51 Home Meds: Home Meds Levothyroxine 150 mcg PO ACBREAKFAST 11/07/16 [History] atorvaSTATin [Lipitor] 40 mg PO DAILY 09/22/18 [History] Past Medical History HEENT History: Reports: Other (See Below). Denies: Allergic Rhinitis, Cataract , Glaucoma, Hard of Hearing, Impaired Vision, Macular Degeneration, Retinal Detachment Other HEENT History: Right-sided strabismus convergence Cardiovascular History: Reports: Arrhythmia, High Cholesterol, Syncope, Other ( See Below). Denies: Afib, Aneurysm, Blood Clots/VTE/DVT, CAD, Heart Failure, Heart Murmur, Hypertension, AK, PVD Other Cardiovascular History: Syncopal episode initially on 07/12/15 with recurrent episodes since that time with last near-syncopal episode on 04/29/17 and evaluation this facility. hyperlipidemia and triglyceridemia, incomplete right bundle branch block, bradycardia Respiratory History: Reports: COPD, Intubation, Previous, Other (See Below). Denies: Asthma, Bronchitis, Recurrent, Intubation, Difficult, PE, Pneumothorax, Sleep Apnea, TB Other Respiratory History: Patient with history of premature delivery at 32 weeks gestation with and NICU care and intubation, COPD by chest x-ray with history of tobacco and marijuana use and no current medical therapy. Gastrointestinal History: Reports: Chronic Constipation, GERD, Hemorrhoids, Jaundice, Other (See Below). Denies: Bowel Obstruction, Celiac Disease, Cholelithiasis, Colon Polyp, Gastritis, GI Bleed, Inflammatory Bowel Disease, Irritable Bowel Syndrome, Pancreatitis, PUD Other Gastrointestinal History: Gilbert's syndrome diagnosed on 04/29/17. jaundice secondary to prematurity Genitourinary History: Reports: Other (See Below). Denies: Acute Renal Failure , BPH, Chronic Renal Insuffiency, Renal Calculus, Retention, Urinary, STD, Urinary Incontinence, UTI, Recurrent Other Genitourinary History: Although nonspecific history of previous episode of mild renal insufficiency by medical records Musculoskeletal History: Reports: Arthritis, Back Pain, Chronic, Fracture, Osteoarthritis, Other (See Below). Denies: Gout, Neck Pain, Chronic, RA, SLE Other Musculoskeletal History: Boxer's fracture of the fifth metacarpal of the left hand initially at age 15 and then at age 17 with apparent 2 additional similar hand injuries subsequent to this. Neurological History: Reports: Concussion, Head Trauma, Other (See Below). Denies: Cerebral Aneurysms, CVA, Headaches, Chronic, Migraines, MS, Neuropathy, Diabetic, Neuropathy, Peripheral, Parkinson's, Seizure, TIA Other Neuro History: Head concussion at about age 12 Psychiatric History: Reports: Addiction, Anxiety, Depression, Psych Hospitalization(s), Suicide Attempt, Suicidal Ideation, Other (See Below). Denies: Abuse, Victim of, ADD, ADHD, Dementia, Psychosis, PTSD Other Psychiatric History: Anxiety and depression with suicidal ideation without attempt initially at about age 13. Subsequent suicide attempt on with multiple pill overdose and evaluation in this facility with patient initially leaving [facility] and subsequently transferred to [facility] in [place]. Chronic illicit drug and tobacco use. Endocrine/Metabolic History: Reports: Hypothyroidism, Other (See Below). Denies : Diabetes, Type I, Diabetes, Type II, Diabetes Mellitus, Type 3c, IDDM, Obesity /BMI 30+, Osteopenia, Osteoporosis Other Endocrine/Metabolic History: Hypothyroidism since with history of previous medication noncompliance, thymus hyperplasia of unknown etiology Hematologic History: Reports: None. Denies: Anemia, Blood Transfusion(s), Iron Deficiency Immunologic History: Reports: None. Denies: AIDS, HIV, SLE Oncologic (Cancer) History: Reports: None. Denies: Basal Cell Carcinoma, Colon , Hodgkin's Lymphoma, Leukemia, Lymphoma, Metastatic, Non-Hodgkin's Lymphoma, Prostate, Squamous Cell Carcinoma Dermatologic History: Reports: Eczema, Other (See Below). Denies: Psoriasis Other Dermatologic History: Eczema on the hands with no current therapy - Infectious Disease History Infectious Disease History: Reports: Chicken Pox, Measles. Denies: C-Difficile , Meningitis, Mononucleosis, MRSA, Mumps, Pertussis (Whooping Cough), Rheumatic Fever, RSV, Rubella, Scarlet Fever, Shingles, TB, VRE - Past Surgical History Head Surgeries/Procedures: Reports: None HEENT Surgical History: Reports: None. Denies: Adenoidectomy, Cataract Surgery , Eye Surgery, Laser Surgery, LASIK, Myringotomy w Tube(s), Naso-Sinus Surgery, Oral Surgery, Tonsillectomy Cardiovascular Surgical History: Reports: None. Denies: Varicose, Vascular Surgery Respiratory Surgical History: Reports: None. Denies: Thoracentesis GI Surgical History: Reports: None. Denies: Appendectomy, Cholecystectomy, Colonoscopy, EGD, Hernia, Abdominal, Hernia, Inguinal, Hernia Repair/Other Male Surgical History: Reports: Circumcision, Other (See Below). Denies: Vasectomy Other Male Surgeries/Procedures: Circumcision as an infant Endocrine Surgical History: Reports: None Neurological Surgical History: Reports: None. Denies: C-Spine, Discectomy, Laminectomy, Lumbar Spine, Sacral Spine, Spinal Fusion, Thoracic Spine, Vertebroplasty Musculoskeletal Surgical History: Reports: None. Denies: Arthroscopic Procedure , Carpal Tunnel, Ganglion Cyst, Joint Replacement, ORIF, Shoulder Surgery Oncologic Surgical History: Reports: None Dermatological Surgical History: Reports: Other (See Below) Other Dermatological Surgeries/Procedures: Excision of sebaceous cysts 2 from the left buttocks in January 2016. - Past Imaging History Past Imaging History: Reports: Cardiac Echo (04/30/17 somewhat suboptimal with ejection fraction of 5560 percent.), CAT Scan (CT of the chest, abdomen, and pelvis all with IV contrast on 11/07/16, CT of the head at age 12 at time of head concussion), MRI (MRI of the brain on 05/06/17. Apparent MRI of the chest in October 2016 in [place].), Stress Testing (Inconclusive Cardiolite stress test on 07/19/16 secondary to artifacts in the Cardiolite scan) Social & Family History - Family History HEENT: Reports: None. Denies: Allergic Rhinitis, Glaucoma, Macular Degeneration , Retinal Detachment Cardiac: Reports: CAD, Heart Failure, High Cholesterol, AK, Stent, Other (See Below). Denies: Afib, Arrhythmia, Blood Clots/VTE/DVT, Heart Murmur, Hypertension, PVD/COD, Syncope Other Cardiac Family History: Maternal uncle with fatal AK at age 54, father with AK at age 46, maternal aunt with AK in PTCA/stent times 2 at age 54, mother with AK at age 54, mother with hyperlipidemia Respiratory: Reports: None. Denies: Asthma, COPD, PE, Pneumothorax, Sleep Apnea GI: Reports: Cholelithiasis, Other (See Below). Denies: Celiac Disease, Colon Polyps, GERD, GI bleed, Inflammatory Bowel Disease, Irritable Bowel Syndrome, PUD Other GI Family History: Brother with appendectomy at age 31, sister with cholecystectomy at age 18 : Reports: None. Denies: Dialysis, Renal Calculus, Renal Disease/ Insufficiency OBGYN: Reports: None. Denies: Endometriosis, Recurrent Spontaneous Musculoskeletal: Reports: Arthritis, Osteoarthritis, RA, Other (See Below). Denies: Gout, SLE Other Musculoskeletal Family History: Maternal grandmother with rheumatoid arthritis Neurological: Reports: CVA, Other (See Below). Denies: Alzheimers Disease, Cerebral Aneurysms, Dementia, Migraines, MS, Neuropathy, Peripheral, Parkinson's , Seizure, TIA Other Neurological Family History: Brother with history of CVA x2 in his early 30s, mother with CVA at age 55 Psychiatric: Reports: Anxiety, Depression, Suicide Attempt, Other (See Below). Denies: Abuse, Victim of, ADD, ADHD, PTSD Other Psychiatric Family History: Father with anxiety depression disorder secondary to marital problems with successful suicide at age 46 Endocrine/Metabolic: Reports: None. Denies: Diabetes, Gestational, Diabetes, Type I, Diabetes, type II, Diabetes Mellitus, Type 3c, Hypothyroidism, IDDM Hematologic: Reports: None. Denies: Anemia Immunologic: Reports: None. Denies: AIDS, HIV, SLE Dermatologic: Reports: None. Denies: Eczema, Psoriasis Oncologic: Reports: Other (See Below). Denies: Colon, Hodgkin's Lymphoma, Leukemia, Lymphoma, Non-Hodgkin's Lymphoma, Prostate, Skin Other Oncologic Family History: Mother with breast cancer in her 50s - Tobacco Use Smoking Status *Q: Current Every Day Smoker Tobacco Use Within Last Twelve Months: Cigarettes Years of Tobacco use: 21 Packs/Tins Daily: 0.2 Packs/Tins Daily Comment: Started smoking at age 13 with maximum use 3/4 packs per day Used Tobacco, but Quit: Yes Smoking Cessation Information Provided To Patient: Yes Second Hand Smoke Exposure: Yes Source of Second Hand Smoke Exposure: Mother smokes Second Hand Smoke Education Provided: Yes - Caffeine Use Caffeine Use: Reports: Coffee (Occasional). Denies: Energy Drinks, Soda, Tea Caffeine Use Comment: 2 cups of coffee per year - Alcohol Use Alcohol Use History: Yes Days Per Week of Alcohol Use: 0 Number of Drinks Per Day: 0 Number of Drinks Per Day Comment: No previous DWIs, problems with alcohol abuse , etc. Total Drinks Per Week: 0 - Recreational Drug Use Recreational Drug Use: Yes Drug Use in Last 12 Months: Yes Recreational Drug Type: Reports: Marijuana/Hashish (Started at age 13 with current use of 2 times per week). 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 ED EXAM, GENERAL - Physical Exam Exam: See Below Exam Limited By: No Limitations General Appearance: Alert, WD/WN, No Apparent Distress Head: Atraumatic, Normocephalic. No: Facial Swelling, Facial Tenderness, Sinus Tenderness Neck: Normal Inspection, Supple, Non-Tender, Full Range of Motion. No: Lymphadenopathy (L), Lymphadenopathy (R), Thyromegaly Respiratory/Chest: No Respiratory Distress, Lungs Clear, Normal Breath Sounds, No Accessory Muscle Use, Chest Non-Tender. No: Pleural Rub, Retractions Cardiovascular: Normal Peripheral Pulses, Regular Rate, Rhythm, No Edema, No Gallop, No JVD, No Murmur, No Rub, Friction Rub. No: Gallop/S3, Gallop/S4 Peripheral Pulses: 2+: Radial (L), Radial (R), Dorsalis Pedis (L), Dorsalis Pedis (R) GI/Abdominal: Normal Bowel Sounds, Soft, Non-Tender, No Organomegaly, No Distention, No Abnormal Bruit, No Mass, Guarding. No: Pelvis Stable (Male) Exam: Deferred Rectal (Males) Exam: Deferred Back Exam: Normal Inspection, Full Range of Motion. No: CVA Tenderness (L), CVA Tenderness (R) Extremities: Non-Tender (Moderate palpation pain over left lateral dorsal hand with moderate ecchymosis and localized swelling), No Pedal Edema, Normal Capillary Refill, Joint Swelling, Limited Range of Motion (Left hand). No: Alda's Sign Neurological: Alert, Oriented, CN II-XII Intact, Normal Cognition, Normal Gait, No Motor/Sensory Deficits Psychiatric: Normal Affect, Normal Mood Skin Exam: Warm, Dry, Intact, Normal Color, No Rash. No: Wound/Incision Lymphatic: No Adenopathy ED TRAUMA EXTREMITY PROCEDURES - Splinting Left Upper Extremity Splint Site: Left hand Pre-Procedure NV Status: Normal Post-Procedure NV Status: Normal Splint Material: Fiberglass (3" x 12" padded fiberglass splint), Aluminum-Foam, Other (Secured with one 2 inch and an additional inch Kd wrap) Splint Design: Boxer Splint (Short arm) Applied & Form Fitted By: Provider Provider Post-Splint Application NV Check: NV Status Normal, Good Position Complications: No Course - Vital Signs Last Recorded V/S: Last Vital Signs Temp 36.9 C 04/24/19 17:51 Pulse 82 04/24/19 17:51 Resp 14 04/24/19 17:51 BP 111/72 04/24/19 17:51 Pulse Ox 98 04/24/19 17:51 Vital Signs - 24 hr 04/24/19 17:51 Temperature [ 36.9 C Temporal] Pulse, 82 Peripheral [ Right Pulse Oximetry] Respiratory 14 Rate Blood Pressure 111/72 [Right Upper Arm] O2 Sat by Pulse 98 Oximetry - Orders/Labs/Meds Orders: Active Orders 24 hr Category Date Time Status Hand Comp Min 3V Lt [CR] Stat Exams 04/24/19 18:01 Taken Obtain Past Medical Record [OM.PC] Routine Oth 04/24/19 18:01 Active Labs: None Meds: None - Radiology Interpretation Free Text/Narrative:: X-rays of the left hand, complete, shows evidence of a mildly angulated distal fifth metacarpal fracture with no significant dislocation, evidence of foreign body, etc. Departure - Departure Time of Disposition: 19:00 Disposition: Home, Self-Care 01 Condition: Good Clinical Impression: Tobacco abuse counseling, Mixed anxiety depressive disorder Fracture of metacarpal of left hand, closed Qualifiers: Encounter type: initial encounter Metacarpal bone: fifth Metacarpal location: neck Fracture alignment: nondisplaced Qualified Code(s): S62.367A - Nondisplaced fracture of neck of fifth metacarpal bone, left hand, initial encounter for closed fracture Hyperlipidemia Qualifiers: Hyperlipidemia type: mixed hyperlipidemia Qualified Code(s): E78.2 - Mixed hyperlipidemia Hypothyroidism Qualifiers: Hypothyroidism type: acquired Qualified Code(s): E03.9 - Hypothyroidism, unspecified - Discharge Information *PRESCRIPTION DRUG MONITORING PROGRAM REVIEWED*: Not Applicable *COPY OF PRESCRIPTION DRUG MONITORING REPORT IN PATIENT PAUL: Not Applicable Instructions: Cast or Splint Care, Adult, [id number], Metacarpal Fracture, [id number] Referrals: Nicol Vieyra PA-C [Primary Care Provider] - Forms: ED Department Discharge, ED Return to Work/School Form Additional Instructions: 1. Followup with your regular provider in 7 days as directed for reevaluation, repeat x-rays, and possible cast placement. Bring these discharge instructions with you to that visit. 2. Ice packs, hand elevation, activity restrictions, etc. as discussed 3. Work excuse- See Form 4. Tylenol 650 mg by mouth every 4 hours and/or OTC ibuprofen 2-3 tabs by mouth every 6 hours with food as directed./needed. You may stagger these medications for 48-72 hours only, which essentially means that you are receiving a pain medication about every 2 hours. 5. Immediately after this visit verify that your cellular telephone's voicemail has been activated and is empty. Also verify that your home telephone 's answering machine is operating properly and has space to receive messages. Note that it is sometimes necessary for us to be able to contact you at a later date to discuss your medical care. 6. Please remember that we are ALWAYS here for you and want to answer any questions you may have. Feel free to call the hospital any time and we call you back SAHARA. 7. Stop all tobacco use SAHARA as directed/per provided information and consider contacting Quit LIne, etc.. - Problem List & Annotations (1) Fracture of metacarpal of left hand, closed SNOMED Code(s): 540405770 Code(s): S62.309A - UNSP FRACTURE OF UNSP METACARPAL BONE, INIT FOR CLOS FX Status: Acute Priority: High Onset Date: 04/24/19 Annotation/Comment:: No significant angulation requiring reduction at this time. Patient placed in a boxer splint as above. Work excuse provided. Activity restrictions, etc. discussed. Close follow-up by regular provider with consideration of orthopedic referral depending on his clinical course. Qualifiers: Encounter type: initial encounter Metacarpal bone: fifth Metacarpal location: neck Fracture alignment: nondisplaced Qualified Code(s): S62.367A - Nondisplaced fracture of neck of fifth metacarpal bone, left hand, initial encounter for closed fracture (2) Osteoarthritis SNOMED Code(s): 049135652 Code(s): M19.90 - UNSPECIFIED OSTEOARTHRITIS, UNSPECIFIED SITE Status: Chronic Priority: Medium Annotation/Comment:: Otherwise stable by history Qualifiers: Osteoarthritis location: multiple joints Osteoarthritis type: primary Qualified Code(s): M15.0 - Primary generalized (osteo)arthritis (3) Illicit drug use, continuous SNOMED Code(s): 351200468 Code(s): F19.90 - OTHER PSYCHOACTIVE SUBSTANCE USE, UNSPECIFIED, UNCOMPLICATED Status: Chronic Priority: High Annotation/Comment:: Discontinuation of illicit drug use once again strongly recommended secondary to borderline COPD changes by chest x-ray in the past, anxiety depression disorder, etc. (4) Tobacco abuse counseling SNOMED Code(s): 742517624, 928925036, 408989506 Code(s): Z71.6 - TOBACCO ABUSE COUNSELING Status: Chronic Priority: Medium Annotation/Comment:: Tobacco cessation once again strongly encouraged both for the patient and his mother with tobacco cessation information provided at discharge (5) Mixed anxiety depressive disorder SNOMED Code(s): 114492638 Code(s): F41.8 - OTHER SPECIFIED ANXIETY DISORDERS Status: Chronic Priority: Medium Annotation/Comment:: Stable by history. Continue to observe closely by his regular providers, etc. Discontinue marijuana as above. History of suicidal attempt as above. (6) Hypothyroidism SNOMED Code(s): 99949669 Code(s): E03.9 - HYPOTHYROIDISM, UNSPECIFIED Status: Chronic Priority: High Onset Date: Unknown Annotation/Comment:: Currently under therapy. Continue to observe closely by regular providers. Medication compliance encouraged. Hypothyroidism since possibly secondary to premature delivery. Patient has been noncompliant with medical therapy in the past. Qualifiers: Hypothyroidism type: acquired Qualified Code(s): E03.9 - Hypothyroidism, unspecified (7) Hyperlipidemia SNOMED Code(s): 74989130 Code(s): E78.5 - HYPERLIPIDEMIA, UNSPECIFIED Status: Chronic Priority: Medium Annotation/Comment:: Currently under therapy. Continue to observe closely by regular provider. Qualifiers: Hyperlipidemia type: mixed hyperlipidemia Qualified Code(s): E78.2 - Mixed hyperlipidemia - Problem List Review Problem List Initiated/Reviewed/Updated: Yes - My Orders Last 24 Hours: My Active Orders 04/24/19 18:01 Hand Comp Min 3V Lt [CR] Stat Obtain Past Medical Record [OM.PC] Routine - Assessment/Plan Last 24 Hours: My Active Orders 04/24/19 18:01 Hand Comp Min 3V Lt [CR] Stat Obtain Past Medical Record [OM.PC] Routine Assessment:: As above Plan: As above. Extensive precautions were given to the patient, who is in agreement with the treatment plan. See Patient Instructions for further treatment and plan.
== END 2019-04-24 18:59 | disposition home or self-care (01) ==
LOC: LL.ED 17:43
DX: S62.367A Nondisplaced fracture of neck of fifth metacarpal bone, left hand, initial encounter for closed fracture (principal); F41.8 Other specified anxiety disorders; E78.2 Mixed hyperlipidemia; E03.9 Hypothyroidism, unspecified; Z71.6 Tobacco abuse counseling; F17.210 Nicotine dependence, cigarettes, uncomplicated; E78.00 Pure hypercholesterolemia, unspecified; M19.90 Unspecified osteoarthritis, unspecified site; Z79.899 Other long term (current) drug therapy; W18.40XA Slipping, tripping and stumbling without falling, unspecified, initial encounter
CPT/HCPCS: 29125; 73130-LT; 99283-25; 99284